=== PATIENT | female | born 1940 | race Asian ===

== ENCOUNTER 2017-01-19 09:42 | Inpatient (IN) | payer MEDICARE, BC ==
[~2017-01-19] VITALS: Ht 157.5 cm; Wt 54.4 kg
[2017-01-19] MEDS ORDERED: EVISTA60 MG ORAL (09:50)
[2017-01-19] MEDS ORDERED: TRIAMTERENE-HC1 EAC7 ORAL (09:51)
[2017-01-19] MEDS ORDERED: GLIMEPIRIDE1 MG ORAL (09:51)
[2017-01-19] MEDS ORDERED: FLUVASTATIN SOD20 MG PO (09:51)
[2017-01-19] MEDS ORDERED: ATENOLOL50 MG ORAL (09:51)
[2017-01-19] MEDS ORDERED: Sodium Chloride 500ML 500 ML IV ONE (10:02)
[2017-01-19 10:18] VITALS: BP 115/46
[2017-01-19 10:27] LABS: MEAN CORPUSCULAR HEMOGLOBIN 35.3 PG (27.0-31.0); MEAN CORPUSCULAR HGB CONC 33.9 G/DL (32.0-36.0); MEAN CORPUSCULAR VOLUME 104 FL (80-99); MEAN PLATELET VOLUME 8.1 FL (6.5-10.1); PLATELET COUNT 105 K/UL (150-450); RED BLOOD COUNT 4.25 M/UL (4.20-5.40); RED CELL DISTRIBUTION WIDTH 12.1 % (11.6-14.8); WHITE BLOOD COUNT 7.7 K/UL (4.8-10.8)
[2017-01-19 10:30] LABS: KETONES,URINE 4+ (NEGATIVE); LEUKOCYTE ESTERASE ,URINE NEGATIVE (NEGATIVE); NITRITE,URINE NEGATIVE (NEGATIVE); PH,URINE 5 (4.5-8.0); PROTEIN,URINE 2+ (NEGATIVE); UROBILINOGEN,URINE 1 MG/DL (0.0-1.0)
[2017-01-19 10:37] LABS: APPEARANCE,URINE SLIGHTLY CLOUDY
[2017-01-19 10:43] LABS: BACTERIA,URINE FEW /HPF; HYALINE CASTS, URINE 0-2 /LPF; SQUAMOUS EPITHELIAL CELL,UR FEW /LPF (NONE/OCC); WBC,URINE 0-2 /HPF (0 - 2)
[2017-01-19 10:53] LABS: ALANINE AMINOTRANSFERASE 22 U/L (12-78); ALBUMIN/GLOBULIN RATIO 1.6 (1.0-2.7); ANION GAP 23 mmol/L (5-15); ASPARTATE AMINO TRANSFERASE 34 U/L (15-37); CALCIUM 9.4 MG/DL (8.5-10.1); CARBON DIOXIDE 17 MMOL/L (21-32); CHLORIDE 103 MMOL/L (98-107); CKMB 7.2 NG/ML (0.0-3.6); CREATININE 0.9 MG/DL (0.55-1.30); POTASSIUM 3.4 MMOL/L (3.5-5.1); SODIUM 143 MMOL/L (136-145); TOTAL PROTEIN 6.5 G/DL (6.4-8.2)
[2017-01-19 11:06] LABS: BILIRUBIN,DIRECT 0.6 MG/DL (0.0-0.3)
--- NOTE | 2017-01-19 11:11 | Diagnostic Imaging Report ---
Indication: Headache. Syncope Technique: Contiguous 5 mm thick transaxial imaging of the head obtained in a Siemens Sensation [address] scanner. Soft tissue and bone windows generated. Total Dose length Product (DLP): [address] Dose Index Volume (CTDIvol): 70.38, 0.15 mGy Comparison: none Findings: There is mild prominence of the ventricles, basal cisterns, and cerebral sulci consistent with atrophy. Mild, nonspecific, white matter hypoattenuation is noted throughout the brain consistent with chronic small vessel disease. There is no midline shift, edema, acute hemorrhage, mass effect, or abnormal extra-axial fluid collections. Bones and extra osseous soft tissues are unremarkable. Impression: No acute intracranial bleed, mass effect or edema. Mild atrophy of the brain. Nonspecific white matter hypoattenuation probably due to chronic small vessel disease. The CT scanner at [facility] is accredited by the [employer] and the scans are performed using dose optimization techniques as appropriate to a performed exam including Automatic Exposure control.
[2017-01-19 11:28] LABS: BAND NEUTROPHILS % (MANUAL) 0 % (0-8); BASOPHILS % (MANUAL) 0 % (0-2); EOSINOPHILS % (MANUAL) 0 % (0-3); LYMPHOCYTES % (MANUAL) 5 % (20-45); MACROCYTES 1+; NEUTROPHILS % (MANUAL) 90 % (45-75); PLATELET ESTIMATE DECREASED; PLATELET MORPHOLOGY NORMAL; TOTAL CELLS COUNTED 100
--- NOTE | 2017-01-19 11:36 | Diagnostic Imaging Report ---
Indication: Dyspnea Comparison: None A single view chest radiograph was obtained. Findings: No definite infiltrate or pulmonary vascular congestion identified. The heart is enlarged. The aorta is mildly enlarged consistent with atherosclerotic vascular disease. The bones are osteopenic. There is a left breast implant noted. Surgical clips noted in both axilla. Impression: No acute disease
[2017-01-19 11:52] LABS: INR 1.1 (0.9-1.1); PROTHROMBIN TIME 11.9 SEC (9.30-11.50)
[2017-01-19] MEDS ORDERED: Enoxaparin 60mg Inj SUBQ ONE (12:15)
[2017-01-19 12:38] VITALS: BP_SYST 147; BP_SYST 157; BP_DIAS 81; BP_DIAS 91
--- NOTE | 2017-01-19 13:40 | Emergency Room Report ---
History of Present Illness General Chief Complaint: Syncope Source: Patient Present Illness HPI 76-year-old female presents ED for evaluation. Patient was brought in by friend states that she was found down this morning. Patient states she may have passed out and fallen last night. Was on the ground all night until she called her friend this morning. Unclear whether she hit her head. Patient denies any pain at this time. States she feels weak. States she has a poor appetite times one month. Denies chest pain or shortness of breath. Denies fevers or chills. No other aggravating relieving factors. Denies any other associated symptoms Allergies: Coded Allergies: No Known Allergies (Unverified , 01/19/17) Patient History Past Medical History: HTN, other - breast ca Pertinent Family History: none Social History: Denies: smoking, alcohol use, drug use Now: No Immunizations: UTD Reviewed Nursing Documentation: PMH: Agreed, PSxH: Agreed Nursing Documentation-PMH Past Medical History: No History, Except For Hx Hypertension: Yes Hx Diabetes: Yes Hx Cancer: Yes - Bilateral breast CA Review of Systems All Other Systems: negative except mentioned in HPI Physical Exam Vital Signs Date Time Temp Pulse Resp B/P (MAP) Pulse Ox O2 Delivery O2 Flow Rate FiO2 01/19/17 09:45 96.4 85 16 125/48 99 Room Air Sp02 EP Interpretation: reviewed, normal General Appearance: no apparent distress, alert, GCS 15, non-toxic, cachetic Head: normocephalic, atraumatic Eyes: bilateral eye normal inspection, bilateral eye PERRL ENT: hearing grossly normal, normal pharynx, no angioedema, normal voice Neck: full range of motion, supple/symm/no masses Respiratory: chest non-tender, lungs clear, normal breath sounds, speaking full sentences Cardiovascular #1: regular rate, rhythm, no edema Cardiovascular #2: 2+ carotid (R), 2+ carotid (L), 2+ radial (R), 2+ radial (L) , 2+ dorsalis pedis (R), 2+ dorsalis pedis (L) Gastrointestinal: normal bowel sounds, non tender, soft, non-distended, no guarding, no rebound Rectal: deferred Genitourinary: normal inspection, no CVA tenderness Musculoskeletal: back normal, gait/station normal, normal range of motion, non- tender Neurologic: alert, oriented x3, responsive, motor strength/tone normal, sensory intact, speech normal Psychiatric: judgement/insight normal, memory normal, mood/affect normal, no suicidal/homicidal ideation Reflexes: 3+ bicep (R), 3+ bicep (L), 3+ tricep (R), 3+ tricep (L), 3+ knee (R) , 3+ knee (L) Skin: normal color, no rash, warm/dry, well hydrated Lymphatic: no adenopathy Procedures Critical Care Time Critical Care Time i. I feel this is a highly complex case requiring extensive working including EKG/Rhythm strip, Xray/CT/US, Blood/urine lab work, repeat exams while in ED, and administration of strong opiates/narcotics for pain control, admission to hospital or close patient follow up. Total time: 30 min bedside evaluation and treatment excludes procedures (EKG). Reason for critical care: elevated troponin, found down Possible complications: hypotension, hypertension, AL, shock, arrhythmias, metabolic acidosis, end organ damage, respiratory failure. Interventions: Labs, IV fluids, EKG, chest x-ray. Aspirin, Plavix, lovenox Course: Patient presenting with weakness after falling down last night. CT head unremarkable. No chest pain. EKG shows no acute ischemic changes. Troponin 1.066. Given aspirin, Plavix, Lovenox. Admitted to [facility] Consultations: nursing staff, EMS, family Performed by: Dr May Tolerated well condition = critical j. because of unstable vital signs this patient had a condition that could potentially threaten life or limb. I feel this is a critical patient who required my full attention while patient was considered critical. Total Critical Care Time excluding procedures was greater than 35 minutes Medical Decision Making Diagnostic Impression: Primary Impression: Syncope Qualified Codes: R55 - Syncope and collapse Additional Impression: Elevated troponin ER Course Hospital Course 76-year-old F presents ED s/p syncopal episode. feeling weak Differential diagnoses include: AL/unstable angina, arrythmia, dehydration, CVA/ TIA Clinical course Patient placed on stretcher. on threat monitoring analyst. After initial history and physical I ordered labs, EKG, chest x-ray, IVFs, CT Brain labs reviewed- no leukocytosis, hemoglobin/hematocrit ok, electrolytes okay, troponin 1.066 EKG- NSR, no acute ischemic changes interpreted by me Chest x-ray- no acute process CT brain-unremarkable Patient has no chest pain. Remains asymptomatic during ED course. Given aspirin, Plavix, Lovenox Case discussed with Dr. aMyer and he agreed to accept the patient to his service for further care and support I. I feel this is a highly complex case requiring extensive working including EKG/Rhythm strip, Xray/CT/US, Blood/urine lab work, repeat exams while in ED, and administration of strong opiates/narcotics for pain control, admission to hospital or close patient follow up. Diagnosis - syncope, elevated troponin admitted to [facility] in critical condition Labs Test 01/19/17 10:00 White Blood Count 7.7 K/UL (4.8-10.8) Red Blood Count 4.25 M/UL (4.20-5.40) Hemoglobin 15.0 G/DL (12.0-16.0) Hematocrit 44.2 % (37.0-47.0) Mean Corpuscular Volume 104 FL (80-99) Mean Corpuscular Hemoglobin 35.3 PG (27.0-31.0) Mean Corpuscular Hemoglobin Concent 33.9 G/DL (32.0-36.0) Red Cell Distribution Width 12.1 % (11.6-14.8) Platelet Count 105 K/UL (150-450) Mean Platelet Volume 8.1 FL (6.5-10.1) Neutrophils (%) (Auto) % (45.0-75.0) Lymphocytes (%) (Auto) % (20.0-45.0) Monocytes (%) (Auto) % (1.0-10.0) Eosinophils (%) (Auto) % (0.0-3.0) Basophils (%) (Auto) % (0.0-2.0) Differential Total Cells Counted 100 Neutrophils % (Manual) 90 % (45-75) Lymphocytes % (Manual) 5 % (20-45) Monocytes % (Manual) 5 % (1-10) Eosinophils % (Manual) 0 % (0-3) Basophils % (Manual) 0 % (0-2) Band Neutrophils 0 % (0-8) Platelet Estimate Decreased Platelet Morphology Normal Macrocytosis 1+ Prothrombin Time 11.9 SEC (9.30-11.50) Prothromb Time International Ratio 1.1 (0.9-1.1) Activated Partial Thromboplast Time 23 SEC (23-33) Urine Color Yellow Urine Appearance Slightly cloudy Urine pH 5 (4.5-8.0) Urine Specific [place] 1.025 (1.005-1.035) Urine Protein 2+ (NEGATIVE) Urine Glucose (UA) Negative (NEGATIVE) Urine Ketones 4+ (NEGATIVE) Urine Occult Blood 1+ (NEGATIVE) Urine Nitrite Negative (NEGATIVE) Urine Bilirubin Negative (NEGATIVE) Urine Urobilinogen 1 MG/DL (0.0-1.0) Urine Leukocyte Esterase Negative (NEGATIVE) Urine RBC 2-4 /HPF (0 - 2) Urine WBC 0-2 /HPF (0 - 2) Urine Squamous Epithelial Cells Few /LPF (NONE/OCC) Urine Bacteria Few /HPF (NONE) Urine Hyaline Casts 0-2 /LPF (NONE) Sodium Level 143 MMOL/L (136-145) Potassium Level 3.4 MMOL/L (3.5-5.1) Chloride Level 103 MMOL/L (98-107) Carbon Dioxide Level 17 MMOL/L (21-32) Anion Gap 23 mmol/L (5-15) Blood Urea Nitrogen 13 mg/dL (7-18) Creatinine 0.9 MG/DL (0.55-1.30) Estimat Glomerular Filtration Rate mL/min (>60) Glucose Level 155 MG/DL (74-106) Calcium Level 9.4 MG/DL (8.5-10.1) Total Bilirubin 1.4 MG/DL (0.2-1.0) Direct Bilirubin 0.6 MG/DL (0.0-0.3) Aspartate Amino Transf (AST/SGOT) 34 U/L (15-37) Alanine Aminotransferase (ALT/SGPT) 22 U/L (12-78) Alkaline Phosphatase 47 U/L (46-116) Total Creatine Kinase 383 U/L (26-308) Creatine Kinase MB 7.2 NG/ML (0.0-3.6) Creatine Kinase MB Relative Index 1.8 Troponin I 1.066 ng/mL (0.000-0.056) Total Protein 6.5 G/DL (6.4-8.2) Albumin 4.0 G/DL (3.4-5.0) Globulin 2.5 g/dL Albumin/Globulin Ratio 1.6 (1.0-2.7) EKG Diagnostic Results Rate: normal Rhythm: NSR ST Segments: no acute changes ASA given to the pt in ED: Yes Rhythm Strip Diag. Results EP Interpretation: yes Rhythm: NSR, no PVC's, no ectopy Chest X-Ray Diagnostic Results Chest X-Ray Diagnostic Results : Chest X-Ray Ordered: Yes # of Views/Limited/Complete: 1 View Indication: Other - syncope EP Interpretation: Yes Interpretation: no consolidation, no effusion, no pneumothorax, no acute cardiopulmonary disease Impression: No acute disease Electronically Signed by: Electronically signed by Harsh May MD CT/MRI/US Diagnostic Results CT/MRI/US Diagnostic Results : Imaging Test Ordered: CT head Impression no acute process Last Vital Signs Date Time Temp Pulse Resp B/P (MAP) Pulse Ox O2 Delivery O2 Flow Rate FiO2 01/19/17 12:38 97.6 66 20 147/81 100 Room Air Status: improved Disposition: ADMITTED INPATIENT Condition: Critical Referrals: NON PHYSICIAN (PCP) HARSH MAY M.D. Jan 19, 2017 13:40
--- NOTE | 2017-01-19 15:33 | Neurology Progress Note ---
Objective Physical Exam Last Vital Signs Date Time Temp Pulse Resp B/P (MAP) Pulse Ox O2 Delivery O2 Flow Rate FiO2 01/19/17 12:38 97.6 66 20 147/81 100 Room Air Laboratory Tests Test 01/19/17 10:00 White Blood Count 7.7 K/UL (4.8-10.8) Red Blood Count 4.25 M/UL (4.20-5.40) Hemoglobin 15.0 G/DL (12.0-16.0) Hematocrit 44.2 % (37.0-47.0) Mean Corpuscular Volume 104 FL (80-99) H Mean Corpuscular Hemoglobin 35.3 PG (27.0-31.0) H Mean Corpuscular Hemoglobin Concent 33.9 G/DL (32.0-36.0) Red Cell Distribution Width 12.1 % (11.6-14.8) Platelet Count 105 K/UL (150-450) L Mean Platelet Volume 8.1 FL (6.5-10.1) Neutrophils (%) (Auto) % (45.0-75.0) Lymphocytes (%) (Auto) % (20.0-45.0) Monocytes (%) (Auto) % (1.0-10.0) Eosinophils (%) (Auto) % (0.0-3.0) Basophils (%) (Auto) % (0.0-2.0) Differential Total Cells Counted 100 Neutrophils % (Manual) 90 % (45-75) H Lymphocytes % (Manual) 5 % (20-45) L Monocytes % (Manual) 5 % (1-10) Eosinophils % (Manual) 0 % (0-3) Basophils % (Manual) 0 % (0-2) Band Neutrophils 0 % (0-8) Platelet Estimate Decreased L Platelet Morphology Normal Macrocytosis 1+ Prothrombin Time 11.9 SEC (9.30-11.50) H Prothromb Time International Ratio 1.1 (0.9-1.1) Activated Partial Thromboplast Time 23 SEC (23-33) Urine Color Yellow Urine Appearance Slightly cloudy Urine pH 5 (4.5-8.0) Urine Specific [place] 1.025 (1.005-1.035) Urine Protein 2+ (NEGATIVE) H Urine Glucose (UA) Negative (NEGATIVE) Urine Ketones 4+ (NEGATIVE) H Urine Occult Blood 1+ (NEGATIVE) H Urine Nitrite Negative (NEGATIVE) Urine Bilirubin Negative (NEGATIVE) Urine Urobilinogen 1 MG/DL (0.0-1.0) H Urine Leukocyte Esterase Negative (NEGATIVE) Urine RBC 2-4 /HPF (0 - 2) H Urine WBC 0-2 /HPF (0 - 2) Urine Squamous Epithelial Cells Few /LPF (NONE/OCC) Urine Bacteria Few /HPF (NONE) Urine Hyaline Casts 0-2 /LPF (NONE) H Sodium Level 143 MMOL/L (136-145) Potassium Level 3.4 MMOL/L (3.5-5.1) L Chloride Level 103 MMOL/L (98-107) Carbon Dioxide Level 17 MMOL/L (21-32) L Anion Gap 23 mmol/L (5-15) H Blood Urea Nitrogen 13 mg/dL (7-18) Creatinine 0.9 MG/DL (0.55-1.30) Estimat Glomerular Filtration Rate mL/min (>60) Glucose Level 155 MG/DL (74-106) H Calcium Level 9.4 MG/DL (8.5-10.1) Total Bilirubin 1.4 MG/DL (0.2-1.0) H Direct Bilirubin 0.6 MG/DL (0.0-0.3) H Aspartate Amino Transf (AST/SGOT) 34 U/L (15-37) Alanine Aminotransferase (ALT/SGPT) 22 U/L (12-78) Alkaline Phosphatase 47 U/L (46-116) Total Creatine Kinase 383 U/L (26-308) H Creatine Kinase MB 7.2 NG/ML (0.0-3.6) H Creatine Kinase MB Relative Index 1.8 Troponin I 1.066 ng/mL (0.000-0.056) Pro-B-Type Natriuretic Peptide 1252 pg/mL (0-125) H Total Protein 6.5 G/DL (6.4-8.2) Albumin 4.0 G/DL (3.4-5.0) Globulin 2.5 g/dL Albumin/Globulin Ratio 1.6 (1.0-2.7) Impression/Recommendations Recommendations # [id number] DANIAL KRUEGER Jan 19, 2017 15:33
[2017-01-19 16:00] VITALS: BP 94/42
[2017-01-19] MEDS: NovoLOG Insulin Flexpen SUBQ SCH ×2 (16:46→22:22)
[2017-01-19 18:00] VITALS: BP 100/54
[2017-01-19 18:01] LABS: CHOLESTEROL 197 MG/DL (< 200); CHOLESTEROL/HDL RATIO 2.6 (3.3-4.4)
[2017-01-19 20:00] VITALS: BP 109/50
[2017-01-20] VITALS: BP 101/57
--- NOTE | 2017-01-20 02:00 | Consultation ---
DATE OF CONSULTATION: 01/19/2017 NEUROLOGICAL CONSULTATION CONSULTING PHYSICIAN: Breezy Catalan M.D. REQUESTING PHYSICIAN: Christine Mayer M.D. HISTORY OF PRESENT ILLNESS: This is a 76-year-old single lady who is seen in neurological consultation to evaluate the episodes of profound generalized weakness with fall and loss of consciousness. The patient informed me that lately she was not having good appetite, so she was not eating well and was overall quite weak. Last night around 9 p.m., she was in her room, she got up, she tried to walk, she lost consciousness, and fell down. She found herself down on the floor, being unable to get up, so she stayed asleep on the floor until morning when she felt little bit better, was able to stand up, reached the phone, and called her close friend, who then called paramedics and brought her to this facility. On admission, she was denying any pain, but she had generalized weakness. Her vital signs on admission were stable, blood pressure 125/48 and temperature 96.4 degrees. Her initial laboratory studies included normal CBC except elevated MCV and MCH. Coagulation panel, PT of 11.9. Urinalysis, 4+ ketones and 2+ protein. Chemistry panel, potassium 3.4, anion gap of 23, elevated total bilirubin 1.4, blood sugar 155, elevated CK 383 with CK-MB of 7.2. Troponin 1.066. BNP 1252. Imaging studies included CT scan of the brain, which revealed mild diffuse atrophy and chronic small vessel disease. Chest x-ray, no acute disease with atherosclerotic vascular disease affecting her aorta. There was evidence of osteopenia and left breast implant and surgical clips in both axillas. Since admission to present, she felt overall improvement. PAST MEDICAL HISTORY: History of bilateral breast CA required dissection. MEDICATIONS: Treatment include atenolol, fluvastatin, glimepiride, Evista, triamterene and hydrochlorothiazide. ALLERGIES: None reported. SOCIAL HISTORY: She lives alone. She has no close family. She has a close friend who helps her out at times. She is able to provide herself with all activities of daily living. No alcohol. No drug abuse. Nonsmoker. FAMILY HISTORY: Unavailable. REVIEW OF SYSTEMS: Generalized weakness, otherwise no complaints. Denying headache or dizziness. No chest pain or palpitations. No respiratory problems. Denies abdominal pain or discomfort. No urine or bowel incontinence. PHYSICAL EXAMINATION: GENERAL: The patient is well-developed, cachectic-appearing elderly female, not in acute distress. VITAL SIGNS: Now are stable, blood pressure 147/81 and temperature 97.6 degrees. HEENT: Head, normocephalic. No evidence of trauma. Eyes, ears, and throat are clear. NECK: Supple. No meningeal signs. MUSCULOSKELETAL: Unremarkable. There are no deformities. Peripheral pulses 1+ and symmetric. MENTAL STATUS: She is alert and oriented x3. Her speech is fluent. Language intact. She is somewhat slow responsive, but remained coherent and follows commands. CRANIAL NERVE II: Pupils both responding to light and accommodation. Extraocular movements intact. No nystagmus. CRANIAL NERVE V: Normal corneal responses. CRANIAL NERVE VII: No facial asymmetry. CRANIAL NERVE VIII: Normal hearing. CRANIAL NERVE IX THROUGH XII: Tongue is in midline. Symmetric palate elevation. MOTOR EXAMINATION: Able to move arms and legs against the gravity. No involuntary movement. Deep tendon reflexes 1+ and symmetric with downgoing toes on both sides. SENSORY EXAM: Normal to pinprick and light touch. Gait, the patient displayed generalized weakness, required assistant health educator to sit up or stand up, but obviously, she was not able to ambulate due to profound weakness. IMPRESSION: 1. History of transient loss of consciousness, most likely syncopal episode, doubt seizure activities. No evidence of transient ischemic attack. 2. Failure to thrive, rule out occult malignancy. 3. History of bilateral breast carcinoma. 4. Hypertension. 5. Mildly increased liver enzymes. RECOMMENDATION: 1. Occult malignancy workup as per Attending. 2. Orthostatic blood pressure. 3. Caloric count. 4. PT/OT. Start mobility protocol. 5. Speech Therapy and duplex trimmer assessment. 6. Continue treatment with aspirin, Lovenox, and IV fluids. 7. Keep fall precaution. Thank you for allowing me to see this interesting patient in neurological consultation. Breezy Catalan M.D. DR: BLU JOB#: [id number] CC:
[2017-01-20 04:00] VITALS: BP 105/52
[2017-01-20] MEDS: NovoLOG Insulin Flexpen SUBQ SCH ×4 (06:16→20:47)
[2017-01-20 08:00] VITALS: BP 101/50
--- NOTE | 2017-01-20 08:27 | Consultation ---
History of Present Illness General Chief Complaint: Syncope Present Illness Allergies: Coded Allergies: No Known Allergies (Unverified , 01/19/17) Medication History Scheduled Atenolol* (Tenormin*), 50 MG ORAL DAILY, (Reported) Fluvastatin Sodium (Fluvastatin Sodium), 20 MG PO BEDTIME, (Reported) Glimepiride* (Glimepiride*), 1 MG ORAL BEFORE BREAKFAST, (Reported) Raloxifene Hcl* (Evista*), 60 MG ORAL DAILY, (Reported) Triamterene/Hydrochlorothiazid (Triamterene-Hctz 37.5-25 Mg Cp), 1 CAP ORAL DAILY, (Reported) Patient History Healthcare decision maker Resuscitation status Full Code Advanced Directive on File Physical Exam Last 24 Hour Vital Signs Date Time Temp Pulse Resp B/P (MAP) Pulse Ox O2 Delivery O2 Flow Rate FiO2 01/20/17 08:21 72 101/50 01/20/17 08:00 76 01/20/17 04:00 98.2 89 18 105/52 100 Room Air 01/20/17 04:00 51 01/20/17 00:00 97.3 77 18 101/57 100 Room Air 01/20/17 00:00 92 01/19/17 20:00 98.1 80 18 109/50 98 Room Air 01/19/17 18:00 97.5 72 20 100/54 100 01/19/17 16:00 97.2 84 19 94/42 97 Room Air 01/19/17 16:00 87 01/19/17 12:45 97.6 66 20 147/81 100 Room Air 01/19/17 12:38 97.6 66 20 147/81 100 Room Air 01/19/17 10:18 70 16 115/46 99 Room Air 01/19/17 09:45 96.4 85 16 125/48 99 Room Air Laboratory Tests Test 01/19/17 10:00 White Blood Count 7.7 K/UL (4.8-10.8) Red Blood Count 4.25 M/UL (4.20-5.40) Hemoglobin 15.0 G/DL (12.0-16.0) Hematocrit 44.2 % (37.0-47.0) Mean Corpuscular Volume 104 FL (80-99) H Mean Corpuscular Hemoglobin 35.3 PG (27.0-31.0) H Mean Corpuscular Hemoglobin Concent 33.9 G/DL (32.0-36.0) Red Cell Distribution Width 12.1 % (11.6-14.8) Platelet Count 105 K/UL (150-450) L Mean Platelet Volume 8.1 FL (6.5-10.1) Neutrophils (%) (Auto) % (45.0-75.0) Lymphocytes (%) (Auto) % (20.0-45.0) Monocytes (%) (Auto) % (1.0-10.0) Eosinophils (%) (Auto) % (0.0-3.0) Basophils (%) (Auto) % (0.0-2.0) Differential Total Cells Counted 100 Neutrophils % (Manual) 90 % (45-75) H Lymphocytes % (Manual) 5 % (20-45) L Monocytes % (Manual) 5 % (1-10) Eosinophils % (Manual) 0 % (0-3) Basophils % (Manual) 0 % (0-2) Band Neutrophils 0 % (0-8) Platelet Estimate Decreased L Platelet Morphology Normal Macrocytosis 1+ Prothrombin Time 11.9 SEC (9.30-11.50) H Prothromb Time International Ratio 1.1 (0.9-1.1) Activated Partial Thromboplast Time 23 SEC (23-33) Urine Color Yellow Urine Appearance Slightly cloudy Urine pH 5 (4.5-8.0) Urine Specific [place] 1.025 (1.005-1.035) Urine Protein 2+ (NEGATIVE) H Urine Glucose (UA) Negative (NEGATIVE) Urine Ketones 4+ (NEGATIVE) H Urine Occult Blood 1+ (NEGATIVE) H Urine Nitrite Negative (NEGATIVE) Urine Bilirubin Negative (NEGATIVE) Urine Urobilinogen 1 MG/DL (0.0-1.0) H Urine Leukocyte Esterase Negative (NEGATIVE) Urine RBC 2-4 /HPF (0 - 2) H Urine WBC 0-2 /HPF (0 - 2) Urine Squamous Epithelial Cells Few /LPF (NONE/OCC) Urine Bacteria Few /HPF (NONE) Urine Hyaline Casts 0-2 /LPF (NONE) H Sodium Level 143 MMOL/L (136-145) Potassium Level 3.4 MMOL/L (3.5-5.1) L Chloride Level 103 MMOL/L (98-107) Carbon Dioxide Level 17 MMOL/L (21-32) L Anion Gap 23 mmol/L (5-15) H Blood Urea Nitrogen 13 mg/dL (7-18) Creatinine 0.9 MG/DL (0.55-1.30) Estimat Glomerular Filtration Rate mL/min (>60) Glucose Level 155 MG/DL (74-106) H Calcium Level 9.4 MG/DL (8.5-10.1) Total Bilirubin 1.4 MG/DL (0.2-1.0) H Direct Bilirubin 0.6 MG/DL (0.0-0.3) H Aspartate Amino Transf (AST/SGOT) 34 U/L (15-37) Alanine Aminotransferase (ALT/SGPT) 22 U/L (12-78) Alkaline Phosphatase 47 U/L (46-116) Total Creatine Kinase 383 U/L (26-308) H Creatine Kinase MB 7.2 NG/ML (0.0-3.6) H Creatine Kinase MB Relative Index 1.8 Troponin I 1.066 ng/mL (0.000-0.056) Pro-B-Type Natriuretic Peptide 1252 pg/mL (0-125) H Total Protein 6.5 G/DL (6.4-8.2) Albumin 4.0 G/DL (3.4-5.0) Globulin 2.5 g/dL Albumin/Globulin Ratio 1.6 (1.0-2.7) Triglycerides Level 101 MG/DL (0-200) Cholesterol Level 197 MG/DL (< 200) LDL Cholesterol 113 mg/dL (<100) H HDL Cholesterol 75 MG/DL (40-60) H Cholesterol/HDL Ratio 2.6 (3.3-4.4) L Vitamin B12 Level 356 PG/ML (193-986) Height (Feet): 5 Height (Inches): 2.00 Weight (Pounds): 120 Medications Current Medications Medications (Trade) Dose Ordered Sig/Jimmy Route PRN Reason Start Time Stop Time Status Last Admin Dose Admin Acetaminophen (Tylenol) 650 mg Q4H PRN ORAL Mild Pain/Temp > 100.5 01/19/17 13:30 02/18/17 13:29 Atenolol (Tenormin) 50 mg DAILY ORAL 01/20/17 09:00 02/19/17 08:59 Dextrose (Dextrose 50%) STAT PRN IV Hypoglycemia 01/19/17 13:30 02/18/17 13:29 Insulin Aspart (NovoLOG) BEFORE MEALS AND HS SUBQ 01/19/17 16:30 02/18/17 16:29 01/20/17 06:16 Assessment/Plan Assessment/Plan (1) Syncope (2) S/p fall (3) B/L LE weakness seen dictated NEVILLE TALAVERA Jan 20, 2017 08:27
--- NOTE | 2017-01-20 08:31 | Consultation ---
DATE OF CONSULTATION: 01/19/2017 HEMATOLOGY/ONCOLOGY CONSULTATION CONSULTING PHYSICIAN: Lawson Balbuena MD REFERRING PHYSICIAN: Christine Mayer M.D. ATTENDING PHYSICIAN: Christine Mayer M.D. REASON FOR CONSULTATION: Evaluation of failure of thrive and thrombocytopenia. IDENTIFYING DATA: Dear Dr. Christine Mayer: The patient is a pleasant 76-year-old female with a past medical history, which is significant for hypertension and history of breast cancer, at this time presents to the ER for further evaluation and treatment. Per the 00:36, the patient's friend noted the patient was found down in the morning. The patient having passed out was on the ground all night and friend was called. Unclear whether she hit her head. The patient denies any fever, chills or night sweats. The patient does have poor appetite. Denies any chest pain or shortness of breath. No fever or chills. Hematology was consulted because the patient has thrombocytopenia on labs. PAST MEDICAL HISTORY: History of hypertension. PAST SURGICAL HISTORY: None noted. REVIEW OF SYSTEMS: A 12-point review of systems is otherwise negative.CONSTITUTIONAL: No fever, chills, or night sweats. SKIN: No rashes, bumps, or itching. HEENT: No headache, hearing or vision changes. BREASTS: No lumps, pain, or discharge. PULMONARY: No cough, sputum, or shortness of breath. GASTROINTESTINAL: No nausea, vomiting, or diarrhea. GENITOURINARY: No dysuria, frequency, or urgency. MUSCULOSKELETAL: No joint swelling, muscle pain, or trauma. PHYSICAL EXAMINATION: GENERAL: No acute distress. VITAL SIGNS: Reviewed. PULMONARY: Decreased breath sounds. CARDIOVASCULAR: Regular rate. No S3 or S4. ABDOMEN: Soft, nontender, and nondistended. EXTREMITIES: There is 1+ edema. LABORATORY AND DIAGNOSTIC DATA: Currently, WBC of 10.7 and platelet count 105,000. INR 1.1. This on 01/14/2017. Imaging, CT scan of the head shows no acute intracranial bleed. ASSESSMENT: 1. Thrombocytopenia, potentially secondary to underlying infection versus hepatitis versus HIV versus other causes. Evaluate further abdominal ultrasound as well as viral studies. 2. Microcytosis, likely secondary to potential liver involvement. 3. Coagulopathy, secondary to potential liver involvement. is elevated slightly. 4. Hyperglycemia. 02:23 diabetes mellitus. 5. Presyncopal state. Evaluation by Neurology Service. 6. Microcytosis. 02:31 monitor. I appreciate the consultation. Lawson Balbuena M.D. DR: GUSTAVO JOB#: [id number] CC:
[2017-01-20 12:04] VITALS: BP 101/50
--- NOTE | 2017-01-20 14:26 | Wound Care Consultation ---
Wound Assessment Wound Assessment #1: Wound Number: 1 Wound Present on Admission: Yes New Wound: No Status Change of Wound: No Wound Location Body Site Modif: mid Wound Location Body Site: other - Sacrococcygeal Wound Type: pressure ulcer Andrew Test: Does not Andrew Pressure Ulcer Stage: Deep Tissue Injury Wound Thickness: Full Thickness Wound Length: 4.5 Wound Width: 4.0 Wound Depth: utd Percent of Wound Purple/Maroon: 100 Wound Drainage Amount: None Wound Drainage Odor: None/Absent Tissue Surrounding Wound: Erythemic Wound General Appearance: Reddened - purple Wound Assessment #2: Wound Number: 2 Wound Present on Admission: Yes New Wound: No Status Change of Wound: No Wound Location Body Site Modif: left Wound Location Body Site: elbow Wound Type: traumatic injury Andrew Test: Does not Andrew Traumatic Injury Wounds: Skin Tear Wound Thickness: Partial Thickness Wound Length: 0.8 Wound Width: 0.5 Wound Depth: less than 0.1 Percent of Wound [place]/Red: 100 Wound Drainage Description: Serosanguineous Wound Drainage Amount: Scant Wound Drainage Odor: None/Absent Tissue Surrounding Wound: Erythemic Wound General Appearance: Reddened, Draining Wound Assessment #3: Wound Number: 3 Wound Present on Admission: Yes New Wound: No Status Change of Wound: No Wound Location Body Site Modif: left Wound Location Body Site: buttocks Wound Type: pressure ulcer Andrew Test: Does not Andrew Pressure Ulcer Stage: II Wound Thickness: Partial Thickness Wound Length: 2.0 Wound Width: 2.0 Wound Depth: less than 0.1 Percent of Wound [place]/Red: 100 Wound Drainage Description: Serosanguineous Wound Drainage Amount: Scant Wound Drainage Odor: None/Absent Tissue Surrounding Wound: Erythemic Wound General Appearance: Reddened Wound Assessment #4: Wound Number: 4 Wound Present on Admission: Yes New Wound: No Status Change of Wound: No Wound Location Body Site Modif: right Wound Location Body Site: buttocks Wound Type: pressure ulcer Andrew Test: Does not Andrew Pressure Ulcer Stage: II Wound Thickness: Partial Thickness Wound Length: 1.5 Wound Width: 1.0 Wound Depth: less than 0.1 Percent of Wound [place]/Red: 100 Wound Drainage Description: Serosanguineous Wound Drainage Amount: Scant Wound Drainage Odor: None/Absent Tissue Surrounding Wound: Erythemic Wound General Appearance: Reddened Wound Comment #1 Sacrococcygeal DTI pressure ulcer #2 Left elbow skin tear with partial skin loss #3 Left buttock stage II pressure ulcer #4 Right buttock stage II pressure ulcer Recommendation -Local wound care per protocol -Low air loss mattress -Turn and reposition -Keep clean and dry -Optimize nutrition -Offload both heels -Heel protector on both heels -Assess and f/u accordingly for any changes DANIELA MURILLO RN Jan 20, 2017 14:26
--- NOTE | 2017-01-20 14:31 | Diagnostic Imaging Report ---
Is Indications: FALL Technique: 2 views of the thoracic spine Comparison: None Findings: The bony alignment is normal. Vertebral body heights are preserved. Disc spaces are preserved. Bones are osteoporotic. Axillary surgical clips are seen on the lateral view. Impression: No acute bony trauma Evidence of osteoporosis
--- NOTE | 2017-01-20 14:32 | Diagnostic Imaging Report ---
Indication: FALL Technique: 4 views of the lumbar spine Comparison: None Findings: Bony alignment is normal. Vertebral body heights are preserved. Disc spaces are preserved. There is multilevel degenerative facet narrowing. The sacroiliac joint spaces are preserved. The bones are osteoporotic. The pedicles are intact. The sacral arches are grossly preserved. Impression: Mild facet degeneration Osteoporotic change No acute bony trauma
--- NOTE | 2017-01-20 15:36 | Cardiology Report ---
APPROVED REPORT EKG Measurement Heart [id number] Sinus rhythm with short OK Possible Left atrial enlargement Nonspecific ST abnormality Abnormal ECG
[2017-01-20 16:00] VITALS: BP 110/57
[2017-01-20 20:00] VITALS: BP 115/58
--- NOTE | 2017-01-20 21:15 | History and Physical Report ---
DATE OF ADMISSION: 01/19/2017 HISTORY OF PRESENT ILLNESS: The patient is here because she fell down and had a syncopal episode. The patient fell 2 days ago and had syncope. Does not remember the details, however, did deny shortness of breath. Denied palpitations. Denied chest pain before falling. The patient lives by herself. Denies chest pain. Denies shortness of breath. Denies paroxysmal dyspnea. The patient also had elevated troponin. The patient denies headache. Denies diplopia. Denies nausea, vomiting, or diarrhea. Denies history of arrhythmia. Denies history of heart disease. The patient is diabetic. Denies orthopnea. Denies abdominal pain. PAST MEDICAL HISTORY: Hypertension, hyperlipidemia, NIDDM, osteoporosis, hypertension, and also breast cancer. PAST SURGICAL HISTORY: Mastectomy. MEDICATIONS: Atenolol, fluvastatin, glimepiride, Evista, and hydrochlorothiazide. ALLERGIES: No known allergies. SOCIAL HISTORY: She lives by herself. Denies history of smoking, alcohol, or illicit drugs. FAMILY HISTORY: Noncontributory. REVIEW OF SYSTEMS: HEENT: Denies headaches. RESPIRATORY: Denies shortness of breath. Denies cough. CARDIOVASCULAR: Denies chest pain. GASTROINTESTINAL: Denies nausea, vomiting, or diarrhea. EXTREMITIES: Denies pain in the extremities. CENTRAL NERVOUS SYSTEM: No change in vision or speech pattern. She did have a syncopal episode after the fall. The patient fell 2 days ago. Denies headache. Denies diplopia. PHYSICAL EXAMINATION: VITAL SIGNS: Temperature is 98.1 degrees, pulse is 80, and blood pressure 109/50. HEENT: PERRLA. NECK: Supple. No lymphadenopathy. CHEST: Clear to auscultation. GASTROINTESTINAL: Soft, nontender, and nondistended. No organomegaly. EXTREMITIES: No edema. Moves all 4 extremities. NEUROLOGIC: Sensation intact to light touch. Reflexes are equal on both sides. LABORATORY DATA: WBC of 7.7, hemoglobin 15, and platelets of 105. Sodium 143, potassium of 3.4, BUN of 13, and creatinine of 0.9. Glucose of 155. Total bilirubin of 1.4. BNP of 1252. ASSESSMENT: 1. Syncope. 2. Low potassium. 3. Elevated bilirubin. 4. Back pain. 5. I have asked Dr. Richey, Dr. Dennis, Dr. Catalan, and Dr. Peters to see the patient for the above-mentioned diagnoses and treatment as well as for elevated troponin of 1.066 and serial EKG findings. Dr. Catalan and Dr. Dennis will be in charge of working on the patient for the syncopal episode to find out why the patient had a syncopal episode as well. 6. Low potassium. Treatment per Dr. Peters and Dr. Richey will be consulted for the back pain. Christine Mayer M.D. DR: TREVON JOB#: [id number] CC:
--- NOTE | 2017-01-20 21:35 | General Progress Note ---
Assessment/Plan Assessment/Plan ASSESSMENT: 1. Thrombocytopenia. --> have ordered hep/hiv panel as well as abdominal US 2. Microcytosis, likely secondary to potential liver involvement. 3. Coagulopathy, secondary to potential liver involvement. 4. Hyperglycemia due to diabetes mellitus. 5. Presyncopal state. Evaluation by Neurology Service. Subjective Constitutional: Reports: no symptoms HEENT: Reports: no symptoms Cardiovascular: Reports: no symptoms Respiratory: Reports: no symptoms Gastrointestinal/Abdominal: Reports: no symptoms Genitourinary: Reports: no symptoms Neurologic/Psychiatric: Reports: no symptoms Endocrine: Reports: no symptoms Hematologic/Lymphatic: Reports: no symptoms Allergies: Coded Allergies: No Known Allergies (Unverified , 01/19/17) Objective Last 24 Hour Vital Signs Date Time Temp Pulse Resp B/P (MAP) Pulse Ox O2 Delivery O2 Flow Rate FiO2 01/20/17 20:00 98.8 77 20 115/58 97 Room Air 01/20/17 16:55 71 01/20/17 16:00 97.1 70 20 110/57 99 Room Air 01/20/17 12:40 67 01/20/17 12:04 97.5 71 19 101/50 99 Room Air 01/20/17 08:21 72 101/50 01/20/17 08:00 97.0 72 18 101/50 98 Room Air 01/20/17 08:00 76 01/20/17 04:00 98.2 89 18 105/52 100 Room Air 01/20/17 04:00 51 01/20/17 00:00 97.3 77 18 101/57 100 Room Air 01/20/17 00:00 92 Intake and Output 01/20/17 01/21/17 19:00 07:00 Intake Total 200 ml Output Total 400 ml Balance -200 ml Intake Oral 200 ml Output Urine Total 400 ml # Voids 4 Height (Feet): 5 Height (Inches): 2.00 Weight (Pounds): 120 General Appearance: no apparent distress EENT: normal ENT inspection Neck: normal alignment Neurologic: clergy member II-XII grossly normal Skin: normal pigmentation, warm/dry Lawson Balbuena Jan 20, 2017 21:35
--- NOTE | 2017-01-20 23:28 | Diagnostic Imaging Report ---
APPROVED REPORT CPT Code: 19122 Present Symptoms Comments: R/O DVT BILATERAL: Imaging reveals a patent deep venous system bilaterally. There is no evidence of thrombus within the femoral, popliteal or tibial segments. The greater saphenous veins are also within normal limits. Doppler indicates normal spontaneous flow within these segments.
--- NOTE | 2017-01-20 23:28 | Diagnostic Imaging Report ---
APPROVED REPORT CPT Code: 24447 Vascular Symptoms Comments: AMS CAROTID (BILATERAL) - Imaging reveals no significant plaque within the right and left extracranial carotid arteries. The Doppler spectral flow analysis is within normal limits throughout the extracranial carotid arteries bilaterally. VERTEBRAL- The vertebral arteries are within normal limits.
[2017-01-21] VITALS: BP 139/67
--- NOTE | 2017-01-21 00:38 | Cardiology Progress Note ---
Assessment/Plan Assessment/Plan LATE ENTRY NOTE DATE & TIME of ENCOUNTER: 01/20/17 21:10 CARIOLOGY NOTE The patient is seen and examined, full consult note will be dictated shortly. Objective Last 24 Hour Vital Signs Date Time Temp Pulse Resp B/P (MAP) Pulse Ox O2 Delivery O2 Flow Rate FiO2 01/20/17 20:00 98.8 77 20 115/58 97 Room Air 01/20/17 20:00 74 01/20/17 16:55 71 01/20/17 16:00 97.1 70 20 110/57 99 Room Air 01/20/17 12:40 67 01/20/17 12:04 97.5 71 19 101/50 99 Room Air 01/20/17 08:21 72 101/50 01/20/17 08:00 97.0 72 18 101/50 98 Room Air 01/20/17 08:00 76 01/20/17 04:00 98.2 89 18 105/52 100 Room Air 01/20/17 04:00 51 Laboratory Tests Test 01/20/17 21:28 Troponin I 0.472 ng/mL (0.000-0.056) CALLIE CRUZ Jan 21, 2017 00:38
[2017-01-21] MEDS ORDERED: Enoxaparin 60mg Inj SUBQ SCH (02:00)
[2017-01-21 04:00] VITALS: BP 104/60
[2017-01-21 06:10] LABS: MEAN CORPUSCULAR HEMOGLOBIN 35.8 PG (27.0-31.0); MEAN CORPUSCULAR HGB CONC 34.8 G/DL (32.0-36.0); MEAN CORPUSCULAR VOLUME 103 FL (80-99); MEAN PLATELET VOLUME 8.5 FL (6.5-10.1); PLATELET COUNT 86 K/UL (150-450); RED BLOOD COUNT 3.57 M/UL (4.20-5.40); RED CELL DISTRIBUTION WIDTH 11.8 % (11.6-14.8); WHITE BLOOD COUNT 4.5 K/UL (4.8-10.8)
[2017-01-21] MEDS: NovoLOG Insulin Flexpen SUBQ SCH ×4 (06:25→20:50)
[2017-01-21 07:28] LABS: ANION GAP 13 mmol/L (5-15); CALCIUM 8.7 MG/DL (8.5-10.1); CARBON DIOXIDE 25 MMOL/L (21-32); CHLORIDE 107 MMOL/L (98-107); CREATININE 0.6 MG/DL (0.55-1.30); SODIUM 144 MMOL/L (136-145)
[2017-01-21 07:29] LABS: POTASSIUM 2.5 MMOL/L (3.5-5.1)
[2017-01-21 08:00] VITALS: BP 128/61
--- NOTE | 2017-01-21 08:52 | General Progress Note ---
Assessment/Plan Assessment/Plan (1) Syncope (2) S/p fall (3) B/L LE weakness Pt will be continued on the Tylenol as needed. D/w Dr. Richey and he concurred. Subjective Date patient seen: Jan 21, 2017 Time patient seen: 07:30 - am Constitutional: Reports: weakness HEENT: Reports: no symptoms Cardiovascular: Reports: no symptoms Respiratory: Reports: no symptoms Gastrointestinal/Abdominal: Reports: no symptoms Genitourinary: Reports: no symptoms Endocrine: Reports: no symptoms Hematologic/Lymphatic: Reports: no symptoms Allergies: Coded Allergies: No Known Allergies (Unverified , 01/19/17) Subjective Pt is in bed no c/o pain and no signs of distress. Xrays were reviewed with the patient. Objective Last 24 Hour Vital Signs Date Time Temp Pulse Resp B/P (MAP) Pulse Ox O2 Delivery O2 Flow Rate FiO2 01/21/17 08:00 97.6 67 18 128/61 98 Room Air 01/21/17 04:00 98.0 60 20 104/60 98 Room Air 01/21/17 04:00 60 01/21/17 00:00 98.2 73 20 139/67 98 Room Air 01/21/17 00:00 77 01/20/17 20:00 98.8 77 20 115/58 97 Room Air 01/20/17 20:00 74 01/20/17 16:55 71 01/20/17 16:00 97.1 70 20 110/57 99 Room Air 01/20/17 12:40 67 01/20/17 12:04 97.5 71 19 101/50 99 Room Air Laboratory Tests 01/20/17 21:28: Troponin I 0.472H 01/21/17 04:20: Troponin I 0.386H, White Blood Count 4.5L, Red Blood Count 3.57L, Hemoglobin 12.8, Hematocrit 36.7L, Mean Corpuscular Volume 103H, Mean Corpuscular Hemoglobin 35.8H, Mean Corpuscular Hemoglobin Concent 34.8, Red Cell Distribution Width 11.8, Platelet Count 86L, Mean Platelet Volume 8.5, Neutrophils (%) (Auto) , Lymphocytes (%) (Auto) , Monocytes (%) (Auto) , Eosinophils (%) (Auto) , Basophils (%) (Auto) , Neutrophils % (Manual) [Pending] , Lymphocytes % (Manual) [Pending], Platelet Estimate [Pending], Platelet Morphology [Pending], Sodium Level 144, Potassium Level 2.5*L, Chloride Level 107, Carbon Dioxide Level 25, Anion Gap 13, Blood Urea Nitrogen 12, Creatinine 0.6, Estimat Glomerular Filtration Rate , Glucose Level 138H, Calcium Level 8.7 , Magnesium Level 2.6H, Pro-B-Type Natriuretic Peptide 1194H, Hepatitis A IgM Antibody [Pending], Hepatitis B Surface Antigen [Pending], Hepatitis B Core IgM Antibody [Pending], Hepatitis C Antibody [Pending], HIV (1&2) Antibody Rapid Negative Height (Feet): 5 Height (Inches): 2.00 Weight (Pounds): 120 General Appearance: no apparent distress, alert EENT: PERRL/EOMI, normal ENT inspection Neck: non-tender, normal alignment Cardiovascular: normal rate, regular rhythm Respiratory/Chest: lungs clear, no respiratory distress Abdomen: non tender, soft Extremities: non-tender Edema: trace edema Neurologic: alert, oriented x 3 Skin: warm/dry Objective Procedure: XRAY L Spine Min 4v Findings: Bony alignment is normal. Vertebral body heights are preserved. Disc spaces are preserved. There is multilevel degenerative facet narrowing. The sacroiliac joint spaces are preserved. The bones are osteoporotic. The pedicles are intact. The sacral arches are grossly preserved. Impression: Mild facet degeneration Osteoporotic change No acute bony trauma Procedure: XRAY T Spine 2v Findings: The bony alignment is normal. Vertebral body heights are preserved. Disc spaces are preserved. Bones are osteoporotic. Axillary surgical clips are seen on the lateral view. Impression: No acute bony trauma Evidence of osteoporosis NEVILLE TALAVERA Jan 21, 2017 08:52
--- NOTE | 2017-01-21 09:01 | Consultation ---
DATE OF CONSULTATION: 01/20/2017 PAIN MANAGEMENT CONSULTATION CONSULTING PHYSICIAN: Lucy Richey M.D. REFERRING PHYSICIAN: Christine Mayer M.D. PHYSICIAN TELECOMMUNICATIONS ANALYST: Juan Jose Lucero CHIEF COMPLAINT: Lower extremity weakness. HISTORY OF PRESENT ILLNESS: This is a 76-year-old female, who is being seen on the [facility] unit of [facility] for initial comprehensive pain management consultation. The patient reports that she passed out, fell to the ground on her back, and was admitted to the hospital under the care of Dr. Mayer, being ruled out for malignancy at this time. The patient has a history of breast cancer, complaining of pain at this time. However, is complaining of weakness in the lower extremities. Unable to ambulate at this time. PAST MEDICAL HISTORY: Hypertension. MEDICATIONS: Atenolol, fluvastatin, glimepiride, Evista, and triamterene. ALLERGIES: No known drug allergies. SOCIAL HISTORY: Denies smoking tobacco, drinking alcohol, or drug abuse. REVIEW OF SYSTEMS: Denies rash, fever, chills, sweating, dizziness, drowsiness, blurred vision, sore throat, or change in weight. No shortness of breath or chest pain. No nausea, vomiting, diarrhea, or blood in the stool or urine. No bowel or bladder incontinence. No dysuria. She is complaining of bilateral lower extremity weakness. PHYSICAL EXAMINATION: GENERAL: Alert and oriented. VITAL SIGNS: Blood pressure 141/60. HEENT: PERRLA. NECK: Range of motion is full in all directions. No tenderness to paracervical muscles. No adenopathy. LUNGS: Clear. ABDOMEN: Benign. BACK: Range of motion is decreased in flexion and extension with no tenderness to paraspinal muscles, trapezius, or rhomboid muscles. EXTREMITIES: Upper extremity range of motion is full in all directions. No cyanosis. No clubbing. No edema. Sensory is intact. Reflexes are not obtainable. No adenopathy. Lower extremity motion is reduced due to the patient's pain and condition with weakness noted in the bilateral extremities. ASSESSMENT AND PLAN: This is a 76-year-old female with syncope, status post fall, bilateral lower extremity weakness. At this time, the patient is complaining of pain. We will continue the 650 mg Tylenol as needed for mild pain and order x-ray of the thoracic lumbar spine to rule out any pathology at this time. The patient was discussed with Dr. Richey and Dr. Richey concurred. We will follow the patient. Thank you very much for the courtesy of this consultation. Lucy Richey M.D. MADONNA Lucero DR: Jose JOB#: [id number] CC: AJ
[2017-01-21 09:12] LABS: BAND NEUTROPHILS % (MANUAL) 0 % (0-8); BASOPHILS % (MANUAL) 0 % (0-2); EOSINOPHILS % (MANUAL) 2 % (0-3); LYMPHOCYTES % (MANUAL) 24 % (20-45); MACROCYTES 1+; NEUTROPHILS % (MANUAL) 68 % (45-75); PLATELET ESTIMATE DECREASED; PLATELET MORPHOLOGY NORMAL; TOTAL CELLS COUNTED 100
[2017-01-21] MEDS: Aspirin EC 81mg tab ORAL SCH (09:22)
--- NOTE | 2017-01-21 11:27 | General Progress Note ---
Assessment/Plan Assessment/Plan ASSESSMENT: 1. Thrombocytopenia. --> have ordered hep/hiv panel as well as abdominal US --> results pending 2. Microcytosis, likely secondary to potential liver involvement. 3. Coagulopathy, secondary to potential liver involvement. 4. Hyperglycemia due to diabetes mellitus. 5. Presyncopal state. Evaluation by Neurology Service. Subjective Constitutional: Reports: no symptoms HEENT: Reports: no symptoms Cardiovascular: Reports: no symptoms Respiratory: Reports: no symptoms Gastrointestinal/Abdominal: Reports: no symptoms Genitourinary: Reports: no symptoms Neurologic/Psychiatric: Reports: no symptoms Endocrine: Reports: no symptoms Hematologic/Lymphatic: Reports: no symptoms Allergies: Coded Allergies: No Known Allergies (Unverified , 01/19/17) Subjective US abdomen today Objective Last 24 Hour Vital Signs Date Time Temp Pulse Resp B/P (MAP) Pulse Ox O2 Delivery O2 Flow Rate FiO2 01/21/17 09:23 67 128/61 01/21/17 08:00 97.6 67 18 128/61 98 Room Air 01/21/17 08:00 66 01/21/17 04:00 98.0 60 20 104/60 98 Room Air 01/21/17 04:00 60 01/21/17 00:00 98.2 73 20 139/67 98 Room Air 01/21/17 00:00 77 01/20/17 20:00 98.8 77 20 115/58 97 Room Air 01/20/17 20:00 74 01/20/17 16:55 71 01/20/17 16:00 97.1 70 20 110/57 99 Room Air 01/20/17 12:40 67 01/20/17 12:04 97.5 71 19 101/50 99 Room Air Intake and Output 01/21/17 01/22/17 19:00 07:00 # Bowel Movements 1 Laboratory Tests 01/20/17 21:28: Troponin I 0.472H 01/21/17 04:20: Troponin I 0.386H, White Blood Count 4.5L, Red Blood Count 3.57L, Hemoglobin 12.8, Hematocrit 36.7L, Mean Corpuscular Volume 103H, Mean Corpuscular Hemoglobin 35.8H, Mean Corpuscular Hemoglobin Concent 34.8, Red Cell Distribution Width 11.8, Platelet Count 86L, Mean Platelet Volume 8.5, Neutrophils (%) (Auto) , Lymphocytes (%) (Auto) , Monocytes (%) (Auto) , Eosinophils (%) (Auto) , Basophils (%) (Auto) , Differential Total Cells Counted 100, Neutrophils % (Manual) 68, Lymphocytes % (Manual) 24, Monocytes % ( Manual) 6, Eosinophils % (Manual) 2, Basophils % (Manual) 0, Band Neutrophils 0 , Platelet Estimate DecreasedL, Platelet Morphology Normal, Macrocytosis 1+, Sodium Level 144, Potassium Level 2.5*L, Chloride Level 107, Carbon Dioxide Level 25, Anion Gap 13, Blood Urea Nitrogen 12, Creatinine 0.6, Estimat Glomerular Filtration Rate , Glucose Level 138H, Calcium Level 8.7, Magnesium Level 2.6H, Pro-B-Type Natriuretic Peptide 1194H, Hepatitis A IgM Antibody [ Pending], Hepatitis B Surface Antigen [Pending], Hepatitis B Core IgM Antibody [ Pending], Hepatitis C Antibody [Pending], HIV (1&2) Antibody Rapid Negative Height (Feet): 5 Height (Inches): 2.00 Weight (Pounds): 120 General Appearance: no apparent distress EENT: normal ENT inspection Neck: normal inspection Cardiovascular: no gallop/murmur Abdomen: normal bowel sounds Extremities: normal range of motion Edema: mild edema Lawson Balbuena Jan 21, 2017 11:27
[2017-01-21 12:00] VITALS: BP 119/73
--- NOTE | 2017-01-21 14:11 | Diagnostic Imaging Report ---
Indication:Abdominal pain Technique: Grayscale and duplex Doppler imaging of the abdomen performed. Comparison: None Findings: The liver, demonstrated part of the pancreas, aorta and IVC, spleen appear unremarkable. The bladder is distended. There are stones and/or debris within the bladder lumen. Aorta is calcified. There is no biliary ductal dilatation identified. CBD is 7 mm. Gallstones are demonstrated. Sonographic Leggett's is negative per technologist. Doppler evaluation of the main portal vein shows patency. There is no ascites. No hydronephrosis seen. Impression: Cholelithiasis. Bladder stones and debris. Atherosclerotic disease
[2017-01-21 16:00] VITALS: BP 108/55
[2017-01-21] MEDS ORDERED: Tubing IV Secondary IV ONE (16:23)
--- NOTE | 2017-01-21 17:00 | Consultation ---
Consult Note Consult Note asked to evaluate for low K 76-year-old female presents ED for evaluation. Patient was brought in by friend states that she was found down this morning. Patient states she may have passed out and fallen last night. Was on the ground all night until she called her friend this morning. Unclear whether she hit her head. Patient denies any pain at this time. States she feels weak. States she has a poor appetite times one month. Denies chest pain or shortness of breath. Denies fevers or chills. No other aggravating relieving factors. Denies any other associated symptoms .examined- data reviewed Assessment/Plan Low K depletional - History of transient loss of consciousness, most likely syncopal reason for admit episode, doubt seizure activities. No evidence of transient ischemic attack. - Failure to thrive, h/o Breast Ca - History of bilateral breast carcinoma. - Hypertension. - Mildly increased liver enzymes. - Anemia Plan: K supplement monitor lytes- anemia sheehan stop Lipitor for high LFTS DEANGELO RODRIGUEZ Jan 21, 2017 17:00
--- NOTE | 2017-01-21 17:51 | General Progress Note ---
Assessment/Plan Problem List: (1) Elevated troponin ICD Codes: R74.8 - Abnormal levels of other serum enzymes SNOMED: 701997184, [id number] (2) Syncope ICD Codes: R55 - Syncope and collapse SNOMED: 182750626 Qualifiers: Qualified Codes: R55 - Syncope and collapse Status: progressing Assessment/Plan afebrile r/o arrythmia elevated troponin reviewed chart and labs \ Subjective ROS Limited/Unobtainable: Yes Allergies: Coded Allergies: No Known Allergies (Unverified , 01/19/17) Objective Last 24 Hour Vital Signs Date Time Temp Pulse Resp B/P (MAP) Pulse Ox O2 Delivery O2 Flow Rate FiO2 01/21/17 16:00 98.6 61 20 108/55 97 Room Air 01/21/17 12:23 75 01/21/17 12:00 97.8 81 18 119/73 97 Room Air 01/21/17 09:23 67 128/61 01/21/17 08:00 97.6 67 18 128/61 98 Room Air 01/21/17 08:00 66 01/21/17 04:00 98.0 60 20 104/60 98 Room Air 01/21/17 04:00 60 01/21/17 00:00 98.2 73 20 139/67 98 Room Air 01/21/17 00:00 77 01/20/17 20:00 98.8 77 20 115/58 97 Room Air 01/20/17 20:00 74 Intake and Output 01/21/17 01/22/17 18:59 06:59 Intake Total 600 ml Balance 600 ml Intake Oral 600 ml # Voids 3 # Bowel Movements 1 Laboratory Tests 01/20/17 21:28: Troponin I 0.472H 01/21/17 04:20: Troponin I 0.386H, White Blood Count 4.5L, Red Blood Count 3.57L, Hemoglobin 12.8, Hematocrit 36.7L, Mean Corpuscular Volume 103H, Mean Corpuscular Hemoglobin 35.8H, Mean Corpuscular Hemoglobin Concent 34.8, Red Cell Distribution Width 11.8, Platelet Count 86L, Mean Platelet Volume 8.5, Neutrophils (%) (Auto) , Lymphocytes (%) (Auto) , Monocytes (%) (Auto) , Eosinophils (%) (Auto) , Basophils (%) (Auto) , Differential Total Cells Counted 100, Neutrophils % (Manual) 68, Lymphocytes % (Manual) 24, Monocytes % ( Manual) 6, Eosinophils % (Manual) 2, Basophils % (Manual) 0, Band Neutrophils 0 , Platelet Estimate DecreasedL, Platelet Morphology Normal, Macrocytosis 1+, Sodium Level 144, Potassium Level 2.5*L, Chloride Level 107, Carbon Dioxide Level 25, Anion Gap 13, Blood Urea Nitrogen 12, Creatinine 0.6, Estimat Glomerular Filtration Rate , Glucose Level 138H, Calcium Level 8.7, Magnesium Level 2.6H, Pro-B-Type Natriuretic Peptide 1194H, Hepatitis A IgM Antibody [ Pending], Hepatitis B Surface Antigen [Pending], Hepatitis B Core IgM Antibody [ Pending], Hepatitis C Antibody [Pending], HIV (1&2) Antibody Rapid Negative Height (Feet): 5 Height (Inches): 2.00 Weight (Pounds): 120 General Appearance: confused Cardiovascular: normal rate Respiratory/Chest: lungs clear Christine Mayer MD Jan 21, 2017 17:51
[2017-01-21 20:00] VITALS: BP 93/52
[2017-01-21 20:55] LABS: APPEARANCE,URINE CLEAR; KETONES,URINE 1+ (NEGATIVE); LEUKOCYTE ESTERASE ,URINE 1+ (NEGATIVE); NITRITE,URINE NEGATIVE (NEGATIVE); PH,URINE 6.5 (4.5-8.0); PROTEIN,URINE NEGATIVE (NEGATIVE); UROBILINOGEN,URINE 8 MG/DL (0.0-1.0)
[2017-01-21] MEDS ORDERED: Atorvastatin 80mg tab ORAL SCH (21:00)
[2017-01-21 21:09] LABS: BACTERIA,URINE MODERATE /HPF; SQUAMOUS EPITHELIAL CELL,UR FEW /LPF (NONE/OCC)
[2017-01-21 21:10] LABS: AMORPHOUS SEDIMENT,UR MODERATE /LPF
[2017-01-22] VITALS: BP 102/41
[2017-01-22 04:00] VITALS: BP 103/60
[2017-01-22] MEDS: NovoLOG Insulin Flexpen SUBQ SCH ×3 (05:14→16:50)
[2017-01-22 05:30] LABS: MEAN CORPUSCULAR HEMOGLOBIN 36.9 PG (27.0-31.0); MEAN CORPUSCULAR HGB CONC 35.5 G/DL (32.0-36.0); MEAN CORPUSCULAR VOLUME 104 FL (80-99); MEAN PLATELET VOLUME 8.9 FL (6.5-10.1); PLATELET COUNT 86 K/UL (150-450); RED BLOOD COUNT 3.68 M/UL (4.20-5.40); WHITE BLOOD COUNT 3.9 K/UL (4.8-10.8)
--- NOTE | 2017-01-22 06:40 | Cardiology Progress Note ---
Assessment/Plan Assessment/Plan LATE ENTRY NOTE DATE & TIME of ENCOUNTER: 01/20/17 20:13 CARIOLOGY NOTE 1. Elevated troponin level following syncopal event, possible NSTEMI, no chest pain or SOB is reported, ECG showing no evidence of ischemia, she is not willing to proceed with heart cath at this time, will speak with POA in am. 2. Normal LV systolic function with no evidence of wall motion abnormalities. 3. ALOC, appears confused, neuro work up in progress. 4. Thrombocytopenia, Lovenox was discontinued. 5. HTN 6. DM 7. B/L breast CA Subjective Subjective Sinus bradycardia at 58. Denies chest pain or SOB. Objective Last 24 Hour Vital Signs Date Time Temp Pulse Resp B/P (MAP) Pulse Ox O2 Delivery O2 Flow Rate FiO2 01/22/17 04:00 43 01/22/17 00:00 98.2 60 18 102/41 99 Room Air 01/22/17 00:00 48 01/21/17 20:00 98.4 60 18 93/52 98 Room Air 01/21/17 20:00 53 01/21/17 16:20 58 01/21/17 16:00 98.6 61 20 108/55 97 Room Air 01/21/17 12:23 75 01/21/17 12:00 97.8 81 18 119/73 97 Room Air 01/21/17 09:23 67 128/61 01/21/17 08:00 97.6 67 18 128/61 98 Room Air 01/21/17 08:00 66 2D Echo: LVEF >75%, no wall motion abnormalities, Mod LVH, Mild AR/MR/ND,RVSP 43mmHg Laboratory Tests Test 01/21/17 20:22 01/22/17 04:20 Urine Color Brown Urine Appearance Clear Urine pH 6.5 (4.5-8.0) Urine Specific [place] 1.015 (1.005-1.035) Urine Protein Negative (NEGATIVE) Urine Glucose (UA) Negative (NEGATIVE) Urine Ketones 1+ (NEGATIVE) H Urine Occult Blood 1+ (NEGATIVE) H Urine Nitrite Negative (NEGATIVE) Urine Bilirubin Negative (NEGATIVE) Urine Urobilinogen 8 MG/DL (0.0-1.0) H Urine Leukocyte Esterase 1+ (NEGATIVE) H Urine RBC 2-4 /HPF (0 - 2) H Urine WBC 2-4 /HPF (0 - 2) Urine Squamous Epithelial Cells Few /LPF (NONE/OCC) Urine Amorphous Sediment Moderate /LPF (NONE) H Urine Bacteria Moderate /HPF (NONE) H White Blood Count 3.9 K/UL (4.8-10.8) L Red Blood Count 3.68 M/UL (4.20-5.40) L Hemoglobin 13.6 G/DL (12.0-16.0) Hematocrit 38.3 % (37.0-47.0) Mean Corpuscular Volume 104 FL (80-99) H Mean Corpuscular Hemoglobin 36.9 PG (27.0-31.0) H Mean Corpuscular Hemoglobin Concent 35.5 G/DL (32.0-36.0) Red Cell Distribution Width 12.0 % (11.6-14.8) Platelet Count 86 K/UL (150-450) L Mean Platelet Volume 8.9 FL (6.5-10.1) Neutrophils (%) (Auto) % (45.0-75.0) Lymphocytes (%) (Auto) % (20.0-45.0) Monocytes (%) (Auto) % (1.0-10.0) Eosinophils (%) (Auto) % (0.0-3.0) Basophils (%) (Auto) % (0.0-2.0) Neutrophils % (Manual) Pending Lymphocytes % (Manual) Pending Platelet Estimate Pending Platelet Morphology Pending Sodium Level Pending Potassium Level Pending Chloride Level Pending Carbon Dioxide Level Pending Blood Urea Nitrogen Pending Creatinine Pending Estimat Glomerular Filtration Rate Pending Glucose Level Pending Uric Acid Pending Calcium Level Pending Phosphorus Level Pending Magnesium Level Pending Total Bilirubin Pending Gamma Glutamyl Transpeptidase Pending Aspartate Amino Transf (AST/SGOT) Pending Alanine Aminotransferase (ALT/SGPT) Pending Alkaline Phosphatase Pending Total Creatine Kinase Pending C-Reactive Protein, Quantitative Pending Pro-B-Type Natriuretic Peptide Pending Total Protein Pending Albumin Pending Globulin Pending Triglycerides Level Pending Cholesterol Level Pending LDL Cholesterol Pending HDL Cholesterol Pending Cholesterol/HDL Ratio Pending Vitamin B12 Level Pending Thyroid Stimulating Hormone (TSH) Pending Objective HEENT: Atraumatic, normocephalic, PERRLA, EOMI NECK: No JVD, no carotid bruit with upstroke 2+ B/L PULMONARY: Decreased breath sounds. CARDIOVASCULAR: Regular rate and rhythm, normal S1S2, no murmurs, gallops or rubs. ABDOMEN: Soft, nontender, and nondistended, no HSM. EXTREMITIES: There is 1+ edema B/L CALLIE CRUZ Jan 22, 2017 06:40
[2017-01-22 06:53] LABS: ALANINE AMINOTRANSFERASE 30 U/L (12-78); ALBUMIN/GLOBULIN RATIO 1.1 (1.0-2.7); ANION GAP 7 mmol/L (5-15); ASPARTATE AMINO TRANSFERASE 42 U/L (15-37); CALCIUM 8.4 MG/DL (8.5-10.1); CARBON DIOXIDE 28 MMOL/L (21-32); CHLORIDE 109 MMOL/L (98-107); CHOLESTEROL 146 MG/DL (< 200); CHOLESTEROL/HDL RATIO 2.8 (3.3-4.4); CREATININE 0.7 MG/DL (0.55-1.30); CRP QUANT 0.7 mg/dL (0.00-0.90); MAGNESIUM 2.1 MG/DL (1.8-2.4); PHOSPHORUS 2.4 MG/DL (2.5-4.9); POTASSIUM 3.4 MMOL/L (3.5-5.1); SODIUM 144 MMOL/L (136-145); THYROID STIMULATING HORMONE 0.212 uiU/mL (0.360-3.740); URIC ACID 3.1 MG/DL (2.6-7.2)
[2017-01-22 08:00] VITALS: BP 105/52
--- NOTE | 2017-01-22 08:44 | General Progress Note ---
Assessment/Plan Assessment/Plan (1) Syncope (2) S/p fall (3) B/L LE weakness Pt will be continued on the Tylenol as needed. D/w Dr. Richey and he concurred. Subjective Date patient seen: Jan 22, 2017 Time patient seen: 07:30 - am Allergies: Coded Allergies: No Known Allergies (Unverified , 01/19/17) Subjective Constitutional: Reports: weakness HEENT: Reports: no symptoms Cardiovascular: Reports: no symptoms Respiratory: Reports: no symptoms Gastrointestinal/Abdominal: Reports: no symptoms Genitourinary: Reports: no symptoms Endocrine: Reports: no symptoms Hematologic/Lymphatic: Reports: no symptoms Subjective Patient continues to deny pain and was advised to have positional changes while in bed. Objective Last 24 Hour Vital Signs Date Time Temp Pulse Resp B/P (MAP) Pulse Ox O2 Delivery O2 Flow Rate FiO2 01/22/17 08:00 97.9 62 20 105/52 98 Room Air 01/22/17 04:00 98.4 60 18 103/60 99 Room Air 01/22/17 04:00 43 01/22/17 00:00 98.2 60 18 102/41 99 Room Air 01/22/17 00:00 48 01/21/17 20:00 98.4 60 18 93/52 98 Room Air 01/21/17 20:00 53 01/21/17 16:20 58 01/21/17 16:00 98.6 61 20 108/55 97 Room Air 01/21/17 12:23 75 01/21/17 12:00 97.8 81 18 119/73 97 Room Air 01/21/17 09:23 67 128/61 Laboratory Tests 01/21/17 20:22: Urine Color Brown, Urine Appearance Clear, Urine pH 6.5, Urine Specific [place] 1.015, Urine Protein Negative, Urine Glucose (UA) Negative, Urine Ketones 1+H, Urine Occult Blood 1+H, Urine Nitrite Negative, Urine Bilirubin Negative, Urine Urobilinogen 8H, Urine Leukocyte Esterase 1+H, Urine RBC 2-4H, Urine WBC 2-4, Urine Squamous Epithelial Cells Few, Urine Amorphous Sediment ModerateH, Urine Bacteria ModerateH 01/22/17 04:20: White Blood Count 3.9L, Red Blood Count 3.68L, Hemoglobin 13.6, Hematocrit 38.3 , Mean Corpuscular Volume 104H, Mean Corpuscular Hemoglobin 36.9H, Mean Corpuscular Hemoglobin Concent 35.5, Red Cell Distribution Width 12.0, Platelet Count 86L, Mean Platelet Volume 8.9, Neutrophils (%) (Auto) , Lymphocytes (%) ( Auto) , Monocytes (%) (Auto) , Eosinophils (%) (Auto) , Basophils (%) (Auto) , Neutrophils % (Manual) [Pending], Lymphocytes % (Manual) [Pending], Platelet Estimate [Pending], Platelet Morphology [Pending], Sodium Level 144, Potassium Level 3.4L, Chloride Level 109H, Carbon Dioxide Level 28, Anion Gap 7, Blood Urea Nitrogen 16, Creatinine 0.7, Estimat Glomerular Filtration Rate , Glucose Level 134H, Uric Acid 3.1, Calcium Level 8.4L, Phosphorus Level 2.4L, Magnesium Level 2.1, Total Bilirubin 0.6, Gamma Glutamyl Transpeptidase 22, Aspartate Amino Transf (AST/SGOT) 42H, Alanine Aminotransferase (ALT/SGPT) 30, Alkaline Phosphatase 38L, Total Creatine Kinase 366H, C-Reactive Protein, Quantitative 0.7, Pro-B-Type Natriuretic Peptide 1283H, Total Protein 5.0L, Albumin 2.6L, Globulin 2.4, Albumin/Globulin Ratio 1.1, Triglycerides Level 90, Cholesterol Level 146, LDL Cholesterol 81, HDL Cholesterol 52, Cholesterol/HDL Ratio 2.8L, Vitamin B12 Level 230, Thyroid Stimulating Hormone (TSH) 0.212L Height (Feet): 5 Height (Inches): 2.00 Weight (Pounds): 120 Objective General Appearance: no apparent distress, alert EENT: PERRL/EOMI, normal ENT inspection Neck: non-tender, normal alignment Cardiovascular: normal rate, regular rhythm Respiratory/Chest: lungs clear, no respiratory distress Abdomen: non tender, soft Extremities: non-tender Edema: trace edema Neurologic: alert, oriented x 3 Skin: warm/dry NEVILLE TALAVERA N. P.Miko Jan 22, 2017 08:44
[2017-01-22 08:49] LABS: BAND NEUTROPHILS % (MANUAL) 0 % (0-8); BASOPHILS % (MANUAL) 0 % (0-2); EOSINOPHILS % (MANUAL) 0 % (0-3); LYMPHOCYTES % (MANUAL) 19 % (20-45); MACROCYTES 1+; NEUTROPHILS % (MANUAL) 72 % (45-75); PLATELET ESTIMATE DECREASED; PLATELET MORPHOLOGY NORMAL; TOTAL CELLS COUNTED 100
[2017-01-22] MEDS: Aspirin EC 81mg tab ORAL SCH (09:02)
--- NOTE | 2017-01-22 11:12 | General Progress Note ---
Assessment/Plan Problem List: (1) Elevated troponin ICD Codes: R74.8 - Abnormal levels of other serum enzymes SNOMED: 411486302, [id number] (2) Syncope ICD Codes: R55 - Syncope and collapse SNOMED: 706630206 Qualifiers: Qualified Codes: R55 - Syncope and collapse Status: progressing Assessment/Plan afebrile r/o arrythmia elevated troponin syncope check trop stress test per cardiology \ Subjective ROS Limited/Unobtainable: Yes Constitutional: Reports: no symptoms Allergies: Coded Allergies: No Known Allergies (Unverified , 01/19/17) Objective Last 24 Hour Vital Signs Date Time Temp Pulse Resp B/P (MAP) Pulse Ox O2 Delivery O2 Flow Rate FiO2 01/22/17 09:00 62 105/52 01/22/17 08:00 51 01/22/17 08:00 97.9 62 20 105/52 98 Room Air 01/22/17 04:00 98.4 60 18 103/60 99 Room Air 01/22/17 04:00 43 01/22/17 00:00 98.2 60 18 102/41 99 Room Air 01/22/17 00:00 48 01/21/17 20:00 98.4 60 18 93/52 98 Room Air 01/21/17 20:00 53 01/21/17 16:20 58 01/21/17 16:00 98.6 61 20 108/55 97 Room Air 01/21/17 12:23 75 01/21/17 12:00 97.8 81 18 119/73 97 Room Air Intake and Output 01/22/17 01/23/17 19:00 07:00 Intake Total 200 ml Balance 200 ml Intake Oral 200 ml Laboratory Tests 01/21/17 20:22: Urine Color Brown, Urine Appearance Clear, Urine pH 6.5, Urine Specific [place] 1.015, Urine Protein Negative, Urine Glucose (UA) Negative, Urine Ketones 1+H, Urine Occult Blood 1+H, Urine Nitrite Negative, Urine Bilirubin Negative, Urine Urobilinogen 8H, Urine Leukocyte Esterase 1+H, Urine RBC 2-4H, Urine WBC 2-4, Urine Squamous Epithelial Cells Few, Urine Amorphous Sediment ModerateH, Urine Bacteria ModerateH 01/22/17 04:20: White Blood Count 3.9L, Red Blood Count 3.68L, Hemoglobin 13.6, Hematocrit 38.3 , Mean Corpuscular Volume 104H, Mean Corpuscular Hemoglobin 36.9H, Mean Corpuscular Hemoglobin Concent 35.5, Red Cell Distribution Width 12.0, Platelet Count 86L, Mean Platelet Volume 8.9, Neutrophils (%) (Auto) , Lymphocytes (%) ( Auto) , Monocytes (%) (Auto) , Eosinophils (%) (Auto) , Basophils (%) (Auto) , Differential Total Cells Counted 100, Neutrophils % (Manual) 72, Lymphocytes % ( Manual) 19L, Monocytes % (Manual) 9, Eosinophils % (Manual) 0, Basophils % ( Manual) 0, Band Neutrophils 0, Platelet Estimate DecreasedL, Platelet Morphology Normal, Macrocytosis 1+, Sodium Level 144, Potassium Level 3.4L, Chloride Level 109H, Carbon Dioxide Level 28, Anion Gap 7, Blood Urea Nitrogen 16, Creatinine 0.7, Estimat Glomerular Filtration Rate , Glucose Level 134H, Uric Acid 3.1, Calcium Level 8.4L, Phosphorus Level 2.4L, Magnesium Level 2.1, Total Bilirubin 0.6, Gamma Glutamyl Transpeptidase 22, Aspartate Amino Transf ( AST/SGOT) 42H, Alanine Aminotransferase (ALT/SGPT) 30, Alkaline Phosphatase 38L , Total Creatine Kinase 366H, C-Reactive Protein, Quantitative 0.7, Pro-B-Type Natriuretic Peptide 1283H, Total Protein 5.0L, Albumin 2.6L, Globulin 2.4, Albumin/Globulin Ratio 1.1, Triglycerides Level 90, Cholesterol Level 146, LDL Cholesterol 81, HDL Cholesterol 52, Cholesterol/HDL Ratio 2.8L, Vitamin B12 Level 230, Thyroid Stimulating Hormone (TSH) 0.212L Height (Feet): 5 Height (Inches): 2.00 Weight (Pounds): 120 Neck: supple Cardiovascular: normal rate Respiratory/Chest: lungs clear Christine Mayer MD Jan 22, 2017 11:12
[2017-01-22 12:00] VITALS: BP 117/58
--- NOTE | 2017-01-22 15:28 | General Progress Note ---
Assessment/Plan Status: unchanged Assessment/Plan Low K depletional - History of transient loss of consciousness, most likely syncopal reason for admit episode, doubt seizure activities. No evidence of transient ischemic attack. - Failure to thrive, h/o Breast Ca - History of bilateral breast carcinoma. - Hypertension. - Mildly increased liver enzymes. - Anemia Plan: K supplement monitor lytes- anemia sheehan stop Lipitor for high LFTS Subjective ROS Limited/Unobtainable: No Constitutional: Reports: malaise Allergies: Coded Allergies: No Known Allergies (Unverified , 01/19/17) Objective Last 24 Hour Vital Signs Date Time Temp Pulse Resp B/P (MAP) Pulse Ox O2 Delivery O2 Flow Rate FiO2 01/22/17 12:00 98.2 57 19 117/58 99 Room Air 01/22/17 12:00 67 01/22/17 09:00 62 105/52 01/22/17 08:00 51 01/22/17 08:00 97.9 62 20 105/52 98 Room Air 01/22/17 04:00 98.4 60 18 103/60 99 Room Air 01/22/17 04:00 43 01/22/17 00:00 98.2 60 18 102/41 99 Room Air 01/22/17 00:00 48 01/21/17 20:00 98.4 60 18 93/52 98 Room Air 01/21/17 20:00 53 01/21/17 16:20 58 01/21/17 16:00 98.6 61 20 108/55 97 Room Air Intake and Output 01/22/17 01/23/17 19:00 07:00 Intake Total 200 ml Balance 200 ml Intake Oral 200 ml Laboratory Tests 01/21/17 20:22: Urine Color Brown, Urine Appearance Clear, Urine pH 6.5, Urine Specific [place] 1.015, Urine Protein Negative, Urine Glucose (UA) Negative, Urine Ketones 1+H, Urine Occult Blood 1+H, Urine Nitrite Negative, Urine Bilirubin Negative, Urine Urobilinogen 8H, Urine Leukocyte Esterase 1+H, Urine RBC 2-4H, Urine WBC 2-4, Urine Squamous Epithelial Cells Few, Urine Amorphous Sediment ModerateH, Urine Bacteria ModerateH 01/22/17 04:20: White Blood Count 3.9L, Red Blood Count 3.68L, Hemoglobin 13.6, Hematocrit 38.3 , Mean Corpuscular Volume 104H, Mean Corpuscular Hemoglobin 36.9H, Mean Corpuscular Hemoglobin Concent 35.5, Red Cell Distribution Width 12.0, Platelet Count 86L, Mean Platelet Volume 8.9, Neutrophils (%) (Auto) , Lymphocytes (%) ( Auto) , Monocytes (%) (Auto) , Eosinophils (%) (Auto) , Basophils (%) (Auto) , Differential Total Cells Counted 100, Neutrophils % (Manual) 72, Lymphocytes % ( Manual) 19L, Monocytes % (Manual) 9, Eosinophils % (Manual) 0, Basophils % ( Manual) 0, Band Neutrophils 0, Platelet Estimate DecreasedL, Platelet Morphology Normal, Macrocytosis 1+, Sodium Level 144, Potassium Level 3.4L, Chloride Level 109H, Carbon Dioxide Level 28, Anion Gap 7, Blood Urea Nitrogen 16, Creatinine 0.7, Estimat Glomerular Filtration Rate , Glucose Level 134H, Uric Acid 3.1, Calcium Level 8.4L, Phosphorus Level 2.4L, Magnesium Level 2.1, Total Bilirubin 0.6, Gamma Glutamyl Transpeptidase 22, Aspartate Amino Transf ( AST/SGOT) 42H, Alanine Aminotransferase (ALT/SGPT) 30, Alkaline Phosphatase 38L , Total Creatine Kinase 366H, C-Reactive Protein, Quantitative 0.7, Pro-B-Type Natriuretic Peptide 1283H, Total Protein 5.0L, Albumin 2.6L, Globulin 2.4, Albumin/Globulin Ratio 1.1, Triglycerides Level 90, Cholesterol Level 146, LDL Cholesterol 81, HDL Cholesterol 52, Cholesterol/HDL Ratio 2.8L, Vitamin B12 Level 230, Thyroid Stimulating Hormone (TSH) 0.212L Height (Feet): 5 Height (Inches): 2.00 Weight (Pounds): 120 General Appearance: no apparent distress Objective PE not changed DEANGELO RODRIGUEZ Jan 22, 2017 15:28
[2017-01-22 16:00] VITALS: BP 100/48
[2017-01-22] MEDS ORDERED: Potassium Phosphate 30 MM in NS 275 ML IV ONE (17:00)
--- NOTE | 2017-01-22 17:33 | General Progress Note ---
Assessment/Plan Assessment/Plan ASSESSMENT: 1. Thrombocytopenia. --> continue to monitor. currently downtrending but do not transfuse unless less than 20k 2. Microcytosis, likely secondary to potential liver involvement. 3. Coagulopathy, secondary to potential liver involvement. 4. Hyperglycemia due to diabetes mellitus. 5. Presyncopal state. Evaluation by Neurology Service. Subjective ROS Limited/Unobtainable: Yes Allergies: Coded Allergies: No Known Allergies (Unverified , 01/19/17) Subjective NAD Objective Last 24 Hour Vital Signs Date Time Temp Pulse Resp B/P (MAP) Pulse Ox O2 Delivery O2 Flow Rate FiO2 01/22/17 16:00 98.9 60 20 100/48 98 Room Air 01/22/17 12:00 98.2 57 19 117/58 99 Room Air 01/22/17 12:00 67 01/22/17 09:00 62 105/52 01/22/17 08:00 51 01/22/17 08:00 97.9 62 20 105/52 98 Room Air 01/22/17 04:00 98.4 60 18 103/60 99 Room Air 01/22/17 04:00 43 01/22/17 00:00 98.2 60 18 102/41 99 Room Air 01/22/17 00:00 48 01/21/17 20:00 98.4 60 18 93/52 98 Room Air 01/21/17 20:00 53 Intake and Output 01/22/17 01/23/17 19:00 07:00 Intake Total 200 ml Balance 200 ml Intake Oral 200 ml Laboratory Tests 01/21/17 20:22: Urine Color Brown, Urine Appearance Clear, Urine pH 6.5, Urine Specific [place] 1.015, Urine Protein Negative, Urine Glucose (UA) Negative, Urine Ketones 1+H, Urine Occult Blood 1+H, Urine Nitrite Negative, Urine Bilirubin Negative, Urine Urobilinogen 8H, Urine Leukocyte Esterase 1+H, Urine RBC 2-4H, Urine WBC 2-4, Urine Squamous Epithelial Cells Few, Urine Amorphous Sediment ModerateH, Urine Bacteria ModerateH 01/22/17 04:20: White Blood Count 3.9L, Red Blood Count 3.68L, Hemoglobin 13.6, Hematocrit 38.3 , Mean Corpuscular Volume 104H, Mean Corpuscular Hemoglobin 36.9H, Mean Corpuscular Hemoglobin Concent 35.5, Red Cell Distribution Width 12.0, Platelet Count 86L, Mean Platelet Volume 8.9, Neutrophils (%) (Auto) , Lymphocytes (%) ( Auto) , Monocytes (%) (Auto) , Eosinophils (%) (Auto) , Basophils (%) (Auto) , Differential Total Cells Counted 100, Neutrophils % (Manual) 72, Lymphocytes % ( Manual) 19L, Monocytes % (Manual) 9, Eosinophils % (Manual) 0, Basophils % ( Manual) 0, Band Neutrophils 0, Platelet Estimate DecreasedL, Platelet Morphology Normal, Macrocytosis 1+, Sodium Level 144, Potassium Level 3.4L, Chloride Level 109H, Carbon Dioxide Level 28, Anion Gap 7, Blood Urea Nitrogen 16, Creatinine 0.7, Estimat Glomerular Filtration Rate , Glucose Level 134H, Uric Acid 3.1, Calcium Level 8.4L, Phosphorus Level 2.4L, Magnesium Level 2.1, Total Bilirubin 0.6, Gamma Glutamyl Transpeptidase 22, Aspartate Amino Transf ( AST/SGOT) 42H, Alanine Aminotransferase (ALT/SGPT) 30, Alkaline Phosphatase 38L , Total Creatine Kinase 366H, C-Reactive Protein, Quantitative 0.7, Pro-B-Type Natriuretic Peptide 1283H, Total Protein 5.0L, Albumin 2.6L, Globulin 2.4, Albumin/Globulin Ratio 1.1, Triglycerides Level 90, Cholesterol Level 146, LDL Cholesterol 81, HDL Cholesterol 52, Cholesterol/HDL Ratio 2.8L, Vitamin B12 Level 230, Thyroid Stimulating Hormone (TSH) 0.212L Height (Feet): 5 Height (Inches): 2.00 Weight (Pounds): 120 General Appearance: no apparent distress EENT: normal ENT inspection Neck: normal alignment Cardiovascular: normal peripheral pulses Extremities: non-tender Skin: normal pigmentation Lawson Balbuena Jan 22, 2017 17:33
[2017-01-22 19:30] VITALS: BP 94/50
--- NOTE | 2017-01-22 23:51 | Cardiology Progress Note ---
Assessment/Plan Assessment/Plan LATE ENTRY NOTE DATE & TIME of ENCOUNTER: 01/20/17 20:13 CARIOLOGY NOTE 1. Elevated troponin level following syncopal event, possible NSTEMI, no chest pain or SOB is reported, ECG showing no evidence of ischemia, she is not willing to proceed with heart cath at this time, will speak with POA in am. 2. Normal LV systolic function with no evidence of wall motion abnormalities. 3. ALOC, appears confused, neuro work up in progress. 4. Thrombocytopenia, Lovenox was discontinued. 5. HTN 6. DM 7. B/L breast CA Subjective Subjective Sinus bradycardia at 58. Denies chest pain or SOB. Objective Last 24 Hour Vital Signs Date Time Temp Pulse Resp B/P (MAP) Pulse Ox O2 Delivery O2 Flow Rate FiO2 01/22/17 19:54 73 01/22/17 19:30 97.9 73 20 94/50 98 Room Air 01/22/17 16:00 64 01/22/17 16:00 98.9 60 20 100/48 98 Room Air 01/22/17 12:00 98.2 57 19 117/58 99 Room Air 01/22/17 12:00 67 01/22/17 09:00 62 105/52 01/22/17 08:00 51 01/22/17 08:00 97.9 62 20 105/52 98 Room Air 01/22/17 04:00 98.4 60 18 103/60 99 Room Air 01/22/17 04:00 43 01/22/17 00:00 98.2 60 18 102/41 99 Room Air 01/22/17 00:00 48 Intake and Output 01/22/17 01/23/17 19:00 07:00 Intake Total 727.5 ml 47.5 ml Output Total 350 ml Balance 377.5 ml 47.5 ml Intake Oral 680 ml IV Total 47.5 ml 47.5 ml Output Urine Total 350 ml # Voids 3 Laboratory Tests Test 01/22/17 04:20 White Blood Count 3.9 K/UL (4.8-10.8) L Red Blood Count 3.68 M/UL (4.20-5.40) L Hemoglobin 13.6 G/DL (12.0-16.0) Hematocrit 38.3 % (37.0-47.0) Mean Corpuscular Volume 104 FL (80-99) H Mean Corpuscular Hemoglobin 36.9 PG (27.0-31.0) H Mean Corpuscular Hemoglobin Concent 35.5 G/DL (32.0-36.0) Red Cell Distribution Width 12.0 % (11.6-14.8) Platelet Count 86 K/UL (150-450) L Mean Platelet Volume 8.9 FL (6.5-10.1) Neutrophils (%) (Auto) % (45.0-75.0) Lymphocytes (%) (Auto) % (20.0-45.0) Monocytes (%) (Auto) % (1.0-10.0) Eosinophils (%) (Auto) % (0.0-3.0) Basophils (%) (Auto) % (0.0-2.0) Differential Total Cells Counted 100 Neutrophils % (Manual) 72 % (45-75) Lymphocytes % (Manual) 19 % (20-45) L Monocytes % (Manual) 9 % (1-10) Eosinophils % (Manual) 0 % (0-3) Basophils % (Manual) 0 % (0-2) Band Neutrophils 0 % (0-8) Platelet Estimate Decreased L Platelet Morphology Normal Macrocytosis 1+ Sodium Level 144 MMOL/L (136-145) Potassium Level 3.4 MMOL/L (3.5-5.1) L Chloride Level 109 MMOL/L (98-107) H Carbon Dioxide Level 28 MMOL/L (21-32) Anion Gap 7 mmol/L (5-15) Blood Urea Nitrogen 16 mg/dL (7-18) Creatinine 0.7 MG/DL (0.55-1.30) Estimat Glomerular Filtration Rate mL/min (>60) Glucose Level 134 MG/DL (74-106) H Uric Acid 3.1 MG/DL (2.6-7.2) Calcium Level 8.4 MG/DL (8.5-10.1) L Phosphorus Level 2.4 MG/DL (2.5-4.9) L Magnesium Level 2.1 MG/DL (1.8-2.4) Total Bilirubin 0.6 MG/DL (0.2-1.0) Gamma Glutamyl Transpeptidase 22 U/L (5-85) Aspartate Amino Transf (AST/SGOT) 42 U/L (15-37) H Alanine Aminotransferase (ALT/SGPT) 30 U/L (12-78) Alkaline Phosphatase 38 U/L (46-116) L Total Creatine Kinase 366 U/L (26-308) H C-Reactive Protein, Quantitative 0.7 mg/dL (0.00-0.90) Pro-B-Type Natriuretic Peptide 1283 pg/mL (0-125) H Total Protein 5.0 G/DL (6.4-8.2) L Albumin 2.6 G/DL (3.4-5.0) L Globulin 2.4 g/dL Albumin/Globulin Ratio 1.1 (1.0-2.7) Triglycerides Level 90 MG/DL (0-200) Cholesterol Level 146 MG/DL (< 200) LDL Cholesterol 81 mg/dL (<100) HDL Cholesterol 52 MG/DL (40-60) Cholesterol/HDL Ratio 2.8 (3.3-4.4) L Vitamin B12 Level 230 PG/ML (193-986) Thyroid Stimulating Hormone (TSH) 0.212 uiU/mL (0.360-3.740) Microbiology Date/Time Source Procedure Growth Status 01/21/17 20:22 Urine,Clean Catch Urine Culture - Preliminary NO GROWTH Resulted Objective HEENT: Atraumatic, normocephalic, PERRLA, EOMI NECK: No JVD, no carotid bruit with upstroke 2+ B/L PULMONARY: Decreased breath sounds. CARDIOVASCULAR: Regular rate and rhythm, normal S1S2, no murmurs, gallops or rubs. ABDOMEN: Soft, nontender, and nondistended, no HSM. EXTREMITIES: There is 1+ edema B/L CALLIE CRUZ Jan 22, 2017 23:51
[2017-01-23] MEDS ORDERED: KCl 10% 20 mEq/15ml liquid NG SCH (09:00)
--- NOTE | 2017-01-25 10:06 | Discharge Summary ---
Discharge Summary Hospital Course Date of Admission Jan 19, 2017 at 11:00 Date of Discharge Jan 22, 2017 at 20:00 Admitting Diagnosis SYNCOPE, WEAKNESS HPI Zena Romero is a 76 year old female who was admitted on Jan 19, 2017 at 11:00 for Syncope,Weakness Hospital Course dc summary #[id number] Discharge Condition Upon Discharge: stable Discharge Disposition Patient was discharged to [facility] for cardiac cath Discharge Diagnoses: Discharge Instructions Discharge Instructions Special Instructions I have been assigned to complete a D/C Summary on this account. I was not involved in the patient management Mary Live NP (Vanchtein) Jan 25, 2017 10:06
--- NOTE | 2017-01-25 12:11 | Cardiology Report ---
APPROVED REPORT EKG Measurement Heart [id number] Sinus rhythm with short OR Otherwise normal ECG
--- NOTE | 2017-01-25 13:59 | Cardiology Report ---
APPROVED REPORT EXAM: Two-dimensional and M-mode echocardiogram with Doppler and color Doppler. INDICATION Acute myocardial infarction M-Mode DIMENSIONS IVSd1.0 (0.7-1.1cm)Left Atrium (MM)3.5 (1.6-4.0cm) LVDd3.8 (3.5-5.6cm)Aortic Root2.6 (2.0-3.7cm) PWd0.7 (0.7-1.1cm)Aortic Cusp Exc.1.8 (1.5-2.0cm) LVDs2.7 (2.5-4.0cm) PWs0.9 cm Normal left ventricular chamber size, systolic function and wall motion. Left ventricular ejection fraction estimated to be 55 %. No evidence left ventricular hypertrophy. Anterior Echo-free space, may be due to pericardial fat or effusion. All other cardiac chamber sizes are within normal limits. Mild focal aortic valve sclerosis with adequate cusp excursion. Mildly thickened mitral valve leaflets with normal excursion. Mild mitral annulus and aortic root calcification. Pulmonic valve not well visualized. Normal tricuspid valve structure. IVC at normal size with physiological collapse. A color flow and spectral Doppler study was performed and revealed: Moderate aortic insufficiency. Mild mitral regurgitation. Mitral diastolic velocities suggest reduced left ventricular relaxation c/w impaired relaxation(Grade I). Mild tricuspid regurgitation. Tricuspid systolic velocities suggests peak right ventricular systolic pressure of 43 mmHg, consistent with mild pulmonary hypertension. Mild to moderate pulmonic regurgitation present.
--- NOTE | 2017-01-26 06:15 | Discharge Summary 2 SIG ---
DATE OF ADMISSION: 01/19/2017 DATE OF DISCHARGE: 01/22/2017 REASON FOR ADMISSION: 76-year-old female with a history of bilateral breast CA, hypertension, and diabetes, presented to the emergency department for evaluation. The patient was found by her friend this morning on the floor. It was unclear if she hit her head, but the patient denied any pain. She felt weak. She reported possible passing out and fallen. She denied chest pain or shortness of breath. No fever. No chills. Workup in the emergency room revealed stable vital signs. EKG revealed normal sinus rhythm. No acute ischemic changes. CT of the head revealed no acute intracranial pathology. No bleeding, no mass effect. Elevated troponin -1.066. Total bilirubin- 1.4. Direct bilirubin- 0.6. LFTs were stable at that time. Pro BNP -1252 and platelets -105,000. The patient was started on aspirin, Plavix, and Lovenox for possible non-STEMI and admitted for further management. ADMITTING DIAGNOSES: 1. Syncope. 2. Elevated troponin. 3. Possible NSTEMI. HOSPITAL STAY: The patient was admitted to monitored floor. Cardiology, Neurology, and Nephrology consults were requested along with pain specialist and tone cabinet assembler consults. Sole Molding Machine Operator seen and evaluated the patient. Serial troponin were trending down from initial 1.066 down to 0.472 and then 0.386. According to nursing home assistant, the patient may had a non-STEMI. The patient was initially on Lovenox for non-STEMI, however, Lovenox was stopped since platelets were trending down. Continue aspirin. Echo revealed normal left ventricular systolic function. No evidence of wall motion abnormality. Blood pressure was managed with beta-jojo and was stable. Lipid panel revealed elevated LDL -113, otherwise stable. Recommended low-fat low-cholesterol diet. At this time, off statin due to mild elevation in liver function test. Monitor lipid panel and liver function test. Neurologist seen and evaluated the patient. According to neurologist, the patient had transient loss of consciousness, likely syncope, possibly vasovagal. He doubted seizure, no evidence of TIA. No chest pain, no shortness of breath. CT of the head was negative for acute intracranial pathology. Neuro recommended continue IV fluids, aspirin, and Lovenox. He also recommended to continue fall precautions , physial and occupational therapy evaluation and treatment, consider workup for occult malignancy as per PMD discretion. Venous duplex of bilateral lower extremity was negative. Carotid duplex was unremarkable. X-ray of thoracic and lumbar spine revealed no acute bony trauma, but was consistent with diagnosis of osteoporosis. Urine culture showed mixed urogenital contaminant. Pain specialist followed. Pain management issue was addressed. Noted mild elevation in LFT. Abdominal ultrasound revealed cholelithiasis, bladder stones and debris, but no hydronephrosis and no ascites. Hepatitis panel was negative. The patient off statin due to mild elevation in liver function test. Blood sugar was managed with sliding scale of insulin and was stable. [employer] was consulted for thrombocytopenia. According to tone cabinet assembler, continue to monitor platelets, goal to keep above 20. The patient off Lovenox. due to thrombocytopenia. [employer] followed. Renal parameters and electrolytes were closely monitored , nephrotoxic were avoided. According to entry tech, hypokalemia was depletional. Potassium replaced and stable. Magnesium was within normal limits. Wound care was provided as per wound care nurse recommendation. The patient required cardiac catheterization, initially was not willing to proceed, but later changed her decision. Patient was stable for transfer to [facility] for cardiac catheterization. Troponin was trending down. No complaint of chest pain. No shortness of breath. EKG revealed no acute ischemic changes. FINAL DIAGNOSES: 1. Transient loss of consciousness. 2. Likely syncope( vasovagal versus due to possible NSTEMI) 3. Elevated troponin. 4. Possible non-ST elevation myocardial infarction. 5. Thrombocytopenia. 6. Diabetes. 7. Hypertension. 8. Bilateral breast cancer. 9. Bilateral lower extremities weakness. 10. Hypokalemia. 11. Mild elevation in liver function test. 12. Left buttock stage II, present on admission. 13. Right buttock stage II, present on admission. DISCHARGE MEDICATIONS: List of medications was sent to the admitting facility. DISCHARGE INSTRUCTIONS: The patient was transferred to [facility] for cardiac catheterization via ambulance. FOLLOW-UP: Follow up with attending doctor at the facility. Christine Mayer M.D. I have been assigned to dictate discharge summary on this account and I was not involved in the patient's management. Mary Live N.P. (Vanchtein) DR: MELA JOB#: [id number] CC: AJ
== END 2017-01-22 20:00 | disposition short-term general hospital (02) | DRG 281 ==
LOC: EMR 10:42 → EDBEDREQSVC 10:48 → EDBEDREQ 10:48 → 2W 11:00 → EDBEDREQ 11:27 → 2W 12:44
DX: I21.4 Non-ST elevation (NSTEMI) myocardial infarction (principal); D68.4 Acquired coagulation factor deficiency; L89.150 Pressure ulcer of sacral region, unstageable; L89.312 Pressure ulcer of right buttock, stage 2; E11.65 Type 2 diabetes mellitus with hyperglycemia; L89.322 Pressure ulcer of left buttock, stage 2; D69.6 Thrombocytopenia, unspecified; I10 Essential (primary) hypertension; D64.9 Anemia, unspecified; R55 Syncope and collapse; R62.7 Adult failure to thrive; M81.0 Age-related osteoporosis without current pathological fracture; E78.5 Hyperlipidemia, unspecified; Z85.3 Personal history of malignant neoplasm of breast; R53.1 Weakness; E87.6 Hypokalemia; R41.82 Altered mental status, unspecified
CPT/HCPCS: 36415; 51701; 70450; 71010; 72070; 72110; 76700; 80048; 80053; 80061; 81003; 82248; 82550; 82553; 82607; 82962; 82977; 83735; 83880; 84100; 84443; 84484; 84550; 85007; 85025; 85610; 85730; 86140; 86703; 86705; 86709; 86803; 87086; 87340; 93005; 93306; 93880; 93970; 99285; J1815; J8499